=== PATIENT | female | born 1970 | race Caucasian/White ===

== ENCOUNTER 2016-09-17 15:04 | Emergency (ER) | payer BC ==
[~2016-09-17] VITALS: Ht 162.6 cm; Wt 118.6 kg
[~2016-09-17 15:04] MED LIST: CHOLTAB3 PO; CYAN500T13 PO; FERR325T5 PO
[2016-09-17 15:18] VITALS: TEMP 37.2; Ht 162.6 cm; Wt 118.6 kg
--- NOTE | 2016-09-17 16:11 | EMERGENCY ROOM VISIT NOTE ---
History First contact with patient: 15:56 Chief Complaint: FLU LIKE SX Stated Complaint: FLU SX, D,V,JAVED, JOINT PAIN, CP, ABD. PAIN History of Present Illness The patient is a 45 year old female who presents to the Emergency Room with complaints of flulike symptoms. The patient states her symptoms started 2 days ago on Sunday. The patient states that she developed diarrhea Sunday afternoon. She was feeling better Sunday morning but in the afternoon she began to have vomiting. She reports dry heaves. She reports diarrhea since Sunday again. She states she has had some tightness in her chest. She states she is not able to keep any food or liquids down. She reports arthralgias, myalgias, headache. She rates her discomfort a 5/10. She denies any shortness of breath or pleuritic pain. She denies any localized abdominal pain, hematemesis, melena or hematochezia. She denies any urinary symptoms. She does not know of any sick contacts. She denies any earache, sore throat, cough. She was seen at her family doctor's office, given Phenergan and referred to the emergency department. She denies any recent antibiotic use or recent travel. Review of Systems A 10 system review of systems was completed with positives and pertinent negatives listed in the HPI. Past Medical/Surgical History Medical Problems: (1) Fibroid tumor Surgical Problems: (1) H/O colonoscopy Social History Smoking Status: Never Smoker Alcohol Use: none Marital Status: Housing Status: lives with family Occupation Status: employed Current/Historical Medications Scheduled Cyanocobalamin (Vitamin B12 500MCG), 500 MCG PO DAILY Ergocalciferol (Vitamin D), 400 INTER.UNIT PO DAILY Ferrous Sulfate (Ferrous Sulfate), 325 MG PO BID Levofloxacin (Levaquin), 750 MG PO DAILY Ondasetron Odt (Zofran Odt), 4 MG SL Q6H Scheduled PRN Ibuprofen Tab (Advil), 200-600 MG PO Q4H PRN for Pain or Fever Allergies Coded Allergies: No Known Allergies (Verified , 09/17/16) Physical Exam Vital Signs Date Time Temp Pulse Resp B/P Pulse Ox O2 Delivery O2 Flow Rate FiO2 09/17/16 18:53 90 16 122/62 99 09/17/16 17:08 101 159/95 94 Room Air 09/17/16 15:18 37.2 120 20 144/85 95 Room Air Physical Exam VITALS: Vitals are noted on the nurse's note and reviewed by myself. Vital signs stable. The patient is afebrile. She is normotensive. She is tachycardic with heart rate 120 bpm. GENERAL: This is a 45-year-old female, in no acute distress, nondiaphoretic, well-developed well-nourished. SKIN: The skin was without rashes, erythema, edema, or bruising. There is no tenting of the skin. Capillary reflex less than 2 seconds. HEAD: Normocephalic atraumatic. EARS: External auditory canals clear, tympanic membranes pearly thao without erythema or effusion bilaterally. EYES: Pupils equal round and reactive to light and accommodation. Conjunctivae without injection, sclerae without icterus. Extraocular movements intact. NOSE: Patent, turbinates without inflammation or discharge. MOUTH: Mucous membranes moist. Tonsils are not enlarged. Pharynx without erythema or exudate. Uvula midline. Airway patent. Tongue does not deviate. NECK: Supple without nuchal rigidity. No JVD. HEART: Regular rate and rhythm without murmurs gallops or rubs. LUNGS: Clear to auscultation bilaterally without wheezes, rales or rhonchi. No retractions or accessory muscle use. ABDOMEN: Positive bowel sounds x 4. Soft, mild diffuse tenderness, without masses or organomegaly. MUSCULOSKELETAL: No muscle atrophy, erythema, or edema noted. Full range of motion in all extremities. Strength 5/5 throughout. NEURO: Patient was alert and oriented to person place and time. No focal neurological deficits. Medical Decision & Procedures ER Provider Diagnostic Interpretation: CHEST CTA for PULMONARY ARTERIES CT DOSE: 719.52 mGy.cm HISTORY: Atypical chest pain. Elevated d-dimer. TECHNIQUE: Multiaxial CT images of the chest were performed following the intravenous administration of contrast to evaluate the pulmonary arteries. Maximal intensity projection images were also obtained. COMPARISON STUDY: Chest 09/17/2016. FINDINGS: There is a normal caliber thoracic aorta with no evidence for dissection. There is no evidence for pulmonary embolus. No pleural effusions. No pneumothorax. No mediastinal or hilar lymphadenopathy. The central airways are patent. Multiple gallstones. The heart is mildly enlarged. There are fatty changes within the liver. The spleen and adrenal glands are unremarkable. There are groundglass densities throughout the lungs. IMPRESSION: 1. No evidence for pulmonary embolus. 2. Cholelithiasis. 3. Groundglass densities throughout the lungs. This favors a poor inspiratory effort. An atypical pneumonitis could also a similar appearance but is considered less likely. Laboratory Results 09/17/16 16:00 Red Blood Count 5.80, Mean Corpuscular Volume 80.2, Mean Corpuscular Hemoglobin 26.9, Mean Corpuscular Hemoglobin Concent 33.5, Mean Platelet Volume 9.0, Neutrophils (%) (Auto) 64.6, Lymphocytes (%) (Auto) 26.4, Monocytes (%) (Auto) 7.7, Eosinophils (%) (Auto) 0.4, Basophils (%) (Auto) 0.3, Neutrophils # (Auto) 6.29, Lymphocytes # (Auto) 2.57, Monocytes # (Auto) 0.75, Eosinophils # (Auto) 0.04, Basophils # (Auto) 0.03 09/17/16 16:00 Test 09/17/16 16:00 09/17/16 16:09 09/17/16 17:03 White Blood Count 9.74 K/uL (4.8-10.8) Red Blood Count 5.80 M/uL (4.2-5.4) Hemoglobin 15.6 g/dL (12.0-16.0) Hematocrit 46.5 % (37-47) Mean Corpuscular Volume 80.2 fL (80-100) Mean Corpuscular Hemoglobin 26.9 pg (25-34) Mean Corpuscular Hemoglobin Concent 33.5 g/dl (32-36) Platelet Count 278 K/uL (130-400) Mean Platelet Volume 9.0 fL (7.4-10.4) Neutrophils (%) (Auto) 64.6 % Lymphocytes (%) (Auto) 26.4 % Monocytes (%) (Auto) 7.7 % Eosinophils (%) (Auto) 0.4 % Basophils (%) (Auto) 0.3 % Neutrophils # (Auto) 6.29 K/uL (1.4-6.5) Lymphocytes # (Auto) 2.57 K/uL (1.2-3.4) Monocytes # (Auto) 0.75 K/uL (0.11-0.59) Eosinophils # (Auto) 0.04 K/uL (0-0.5) Basophils # (Auto) 0.03 K/uL (0-0.2) RDW Standard Deviation 42.8 fL (36.4-46.3) RDW Coefficient of Variation 14.8 % (11.5-14.5) Immature Granulocyte % (Auto) 0.6 % Immature Granulocyte # (Auto) 0.06 K/uL (0.00-0.02) D-Dimer 630 ug/L FEU (0-500) Anion Gap 11.0 mmol/L (3-11) Est Creatinine Clear Calc Drug Dose 80.1 ml/min Estimated GFR () 69.2 Estimated GFR (Non- 59.7 BUN/Creatinine Ratio 20.3 (10-20) Calcium Level 8.8 mg/dl (8.5-10.1) Magnesium Level 2.0 mg/dl (1.8-2.4) Total Bilirubin 0.7 mg/dl (0.2-1) Aspartate Amino Transf (AST/SGOT) 19 U/L (15-37) Alanine Aminotransferase (ALT/SGPT) 31 U/L (12-78) Alkaline Phosphatase 82 U/L (45-117) Troponin I < 0.015 ng/ml (0-0.045) Total Protein 8.0 gm/dl (6.4-8.2) Albumin 3.6 gm/dl (3.4-5.0) Globulin 4.4 gm/dl (2.5-4.0) Albumin/Globulin Ratio 0.8 (0.9-2) Lipase 136 U/L (73-393) Influenza Type A Antigen Neg for Influ A (NEG) Influenza Type B Antigen Neg for Influ B (NEG) Urine Color DK YELLOW Urine Appearance CLOUDY (CLEAR) Urine pH 5.0 (4.5-7.5) Urine Specific [place] 1.032 (1.000-1.030) Urine Protein 1+ (NEG) Urine Glucose (UA) NEG (NEG) Urine Ketones TRACE (NEG) Urine Occult Blood TRACE (NEG) Urine Nitrite POS (NEG) Urine Bilirubin NEG (NEG) Urine Urobilinogen NEG (NEG) Urine Leukocyte Esterase TRACE (NEG) Urine WBC (Auto) 5-10 /hpf (0-5) Urine RBC (Auto) 0-4 /hpf (0-4) Urine Hyaline Casts (Auto) 10-30 /lpf (0-5) Urine Epithelial Cells (Auto) >30 /lpf (0-5) Urine Bacteria (Auto) 2+ (NEG) Urine Mucus PRESENT (NONE PRSENT) Medications Administered Medications (Trade) Dose Ordered Sig/Robert Route Start Time Stop Time Status Last Admin Dose Admin Levofloxacin (Levaquin Tab) 500 mg NOW STAT PO 09/17/16 18:42 09/17/16 18:43 DC 09/17/16 18:52 500 MG Ondansetron HCl (Zofran Inj) 4 mg NOW STAT IV 09/17/16 18:42 09/17/16 18:43 DC 09/17/16 18:52 4 MG Ondansetron HCl (ZOFRAN ODT 4MG Home Pack) 1 homepack UD ONCE PO 09/17/16 18:45 09/17/16 18:46 DC 09/17/16 18:53 1 HOMEPACK Procedure The patient was monitored on a night monitor. They maintained a normal sinus rhythm without ectopy. ECG Indication: chest pain Rate (beats per minute): 104 Rhythm: sinus tachycardia Findings: nonspecific-ST abn Comparison ECG Date: no prior available ED Course The patient was seen and examined. Previous visits were reviewed. The patient does not have a fever or leukocytosis. She does not have any significant electrolyte abnormality. Troponin was not elevated. Lipase was not elevated. D-dimer was elevated. Urinalysis suggests urinary tract infection and a urine culture is pending. Influenza was negative. EKG does not reveal any acute arrhythmia or ischemia CTA of the chest suggest atypical pneumonitis versus poor inspiratory effort but no evidence for pulmonary embolus The patient was hydrated with normal saline 2 L She was given 4 mg IV Zofran She was given oral Levaquin The patient presents to the emergency department with symptoms of gastroenteritis. She has had nausea, vomiting and diarrhea. She also appears to have a urinary tract infection. There was question of pneumonitis versus poor respiratory effort on CT imaging of the chest. The patient will be placed on Levaquin. She'll be given a prescription for Zofran. She should return to the ER with any worsening symptoms. Otherwise, she should follow-up with her family doctor later this week. The case was discussed with Dr. Albert who agrees with the assessment and treatment plan Medical Decision DIFFERENTIAL DIAGNOSIS: Hepatitis, cholecystitis, cholangitis, biliary colic, pancreatitis, pneumonia, subdiaphragmatic abscess, appendicitis, inguinal hernia , nephrolithiasis, inflammatory bowel disease, mesenteric adenitis, peptic ulcer disease, GERD, gastritis, pancreatitis, myocardial infarction, pericarditis, ruptured aortic aneurysm, appendicitis, gastroenteritis, bowel obstruction, splenic infarct, diverticulitis, mesenteric ischemia, metabolic, peritonitis, among others. Impression Primary Impression: Urinary tract infection Additional Impression: Nausea vomiting and diarrhea Departure Information Dispostion Home / Self-Care Condition GOOD Prescriptions Levofloxacin (Levaquin) 750 Mg Tab 750 MG PO DAILY for 5 Days, #5 TAB Prov: Iris Pozo PA-C 09/17/16 Ondasetron Odt (ZOFRAN ODT) 4 Mg Tab 4 MG SL Q6H for Nausea, #10 TAB Prov: Iris Pozo PA-C 09/17/16 Referrals Brett Calvin M.D. (PCP) Patient Instructions [facility] Additional Instructions Levaquin once daily for 5 days Zofran as prescribed, as needed for nausea and vomiting Return with any fevers, inability to keep the medication down, generalized worsening symptoms Otherwise, recheck with your family doctor later this week Work Instructions Return To Work: 3 days Problem Qualifiers Primary Impression: Urinary tract infection Urinary tract infection type: acute cystitis Hematuria presence: without hematuria Qualified Codes: N30.00 - Acute cystitis without hematuria
[2016-09-17 16:28] LABS: BASO % 0.3 %; BASO ABS # 0.03 K/uL (0-0.2); COMPLETE YES; EOS % 0.4 %; HEMATOCRIT 46.5 % (37-47); IG% 0.6 %; LYMPH % 26.4 %; LYMPH ABS # 2.57 K/uL (1.2-3.4); MEAN CELL VOLUME 80.2 fL (80-100); MEAN CORPUSCULAR HEMOGLOBIN 26.9 pg (25-34); MEAN CORPUSCULAR HGB CONC 33.5 g/dl (32-36); MONO % 7.7 %; NEUT % 64.6 %; PLATELET COUNT 278 K/uL (130-400); WHITE BLOOD COUNT 9.74 K/uL (4.8-10.8)
--- NOTE | 2016-09-17 16:34 | DIAGNOSTIC IMAGING REPORT ---
CHEST ONE VIEW PORTABLE HISTORY: Atypical chest pain COMPARISON: None. FINDINGS: The heart is mildly enlarged. There are low lung volumes. The lungs are clear. No pleural effusions. No pneumothorax. IMPRESSION: Mild cardiomegaly. Electronically signed by: Gallo Oden M.D. 09/17/2016 4:32 PM Dictated Date/Time: 09/17/2016 4:32 PM
[2016-09-17 16:50] LABS: ALT/SGPT 31 U/L (12-78); BLOOD UREA NITROGEN 22 mg/dl (7-18); BUN/CREATININE RATIO 20.3 (10-20); CALCIUM 8.8 mg/dl (8.5-10.1); CARBON DIOXIDE 24 mmol/L (21-32); CHLORIDE 107 mmol/L (98-107); GLUCOSE 128 mg/dl (70-99); POTASSIUM 3.8 mmol/L (3.5-5.1); SODIUM 142 mmol/L (136-145)
[2016-09-17] MEDS ORDERED: IBUP-103 PO (16:51)
[2016-09-17 16:55] LABS: ALB/GLOB RATIO 0.8 (0.9-2); ALKALINE PHOSPHATASE 82 U/L (45-117); AST/SGOT 19 U/L (15-37)
[2016-09-17 17:20] LABS: URINE APPEARANCE CLOUDY (CLEAR); URINE COLOR DK YELLOW; URINE EPITHELIAL CELL AUTO >30 /lpf (0-5); URINE NITRITE POS (NEG); URINE SPECIFIC GRAVITY 1.032 (1.000-1.030); UROBILINOGEN NEG (NEG)
[2016-09-17 17:33] LABS: MANUAL MICROSCOPIC REQUIRED? NO; REVIEW REQ? YES; URINE BILIRUBIN NEG (NEG); ZZUR CULT IF INDIC CLEAN CATCH YES
[2016-09-17 17:35] LABS: URINE MUCUS PRESENT (NONE PRSENT)
[2016-09-17] MEDS ORDERED: OPTIRAY 320 IV PRN (17:45)
--- NOTE | 2016-09-17 18:30 | DIAGNOSTIC IMAGING REPORT ---
CHEST CTA for PULMONARY ARTERIES CT DOSE: 719.52 mGy.cm HISTORY: Atypical chest pain. Elevated d-dimer. TECHNIQUE: Multiaxial CT images of the chest were performed following the intravenous administration of contrast to evaluate the pulmonary arteries. Maximal intensity projection images were also obtained. COMPARISON STUDY: Chest 09/17/2016. FINDINGS: There is a normal caliber thoracic aorta with no evidence for dissection. There is no evidence for pulmonary embolus. No pleural effusions. No pneumothorax. No mediastinal or hilar lymphadenopathy. The central airways are patent. Multiple gallstones. The heart is mildly enlarged. There are fatty changes within the liver. The spleen and adrenal glands are unremarkable. There are groundglass densities throughout the lungs. IMPRESSION: 1. No evidence for pulmonary embolus. 2. Cholelithiasis. 3. Groundglass densities throughout the lungs. This favors a poor inspiratory effort. An atypical pneumonitis could also a similar appearance but is considered less likely. Electronically signed by: Gallo Oden M.D. 09/17/2016 6:29 PM Dictated Date/Time: 09/17/2016 6:20 PM
[2016-09-17] MEDS ORDERED: LEVOFLOXACIN 250 MG TAB PO STA (18:42)
[2016-09-17] MEDS ORDERED: ONDANSETRON INJ 2 MG/ML 2 ML VIAL IV STA (18:42)
[2016-09-17] MEDS ORDERED: LEVO1TAB35 PO (18:45)
[2016-09-17] MEDS ORDERED: ONDANSETRON HOME PACK 4MG OD TAB PO ONE (18:45)
[2016-09-17] MEDS ORDERED: ONDA4TAB10 SL (18:45)
[2016-09-17 18:53] VITALS: BP 122/62; PULSE 90; O2SAT 99
== END 2016-09-17 19:01 | disposition home or self-care (01) ==
LOC: C.EDB 15:06 → C.EDA 19:01
DX: N30.00 Acute cystitis without hematuria (principal); R11.2 Nausea with vomiting, unspecified; R19.7 Diarrhea, unspecified; R07.89 Other chest pain; M25.50 Pain in unspecified joint; M79.1 Myalgia; R51 Headache; D21.9 Benign neoplasm of connective and other soft tissue, unspecified; K80.20 Calculus of gallbladder without cholecystitis without obstruction; R91.8 Other nonspecific abnormal finding of lung field

== ENCOUNTER → 2016-11-03 | Outpatient (CLI) | payer BC ==
[~2016-11-03] MED LIST changes: +IBUP-103 PO; +ONDA4TAB10 SL
--- NOTE | 2016-11-03 12:01 | DIAGNOSTIC IMAGING REPORT ---
RENAL ULTRASOUND HISTORY: HEMATURIA COMPARISON: Abdomen and pelvis CT 06/23/2013. FINDINGS: Right kidney: 11.7 cm. No hydronephrosis. Normal corticomedullary differentiation and cortical thickness. Left kidney: 11.6 cm. Mild fullness within the left renal collecting system without hydronephrosis. Normal corticomedullary differentiation and cortical thickness. Bladder: No bladder wall thickening. The bilateral ureteral jets were identified. Hepatic steatosis. IMPRESSION: 1. Normal right kidney. 2. Mild fullness within the left renal collecting system without hydronephrosis. 3. Hepatic steatosis. Electronically signed by: Gallo Oden M.D. 11/03/2016 12:00 PM Dictated Date/Time: 11/03/2016 11:59 AM
== END | disposition home or self-care (01) ==
LOC: C.ULTRBC 11:14
PROVIDERS: ATTEND Family Medicine
DX: R31.9 Hematuria, unspecified (principal); K76.0 Fatty (change of) liver, not elsewhere classified

== ENCOUNTER 2019-01-29 08:33 | Observation (INO) ==
--- NOTE | 2019-01-02 17:14 | PAT Medication Instructions ---
Medication Instructions Date of Service January 02, 2019 Home Medications acetaminophen 650 mg PO Q6H PRN Take morning of surgery With a small sip of water, OTHERWISE NOTHING TO EAT OR DRINK AFTER MIDNIGHT: acetaminophen 650 mg PO Q6H PRN (if needed, may be taken up to four hours before surgery) Take evening before surgery acetaminophen 650 mg PO Q6H PRN (if needed) Other Notes If you have any questions please call us at [phone] or [phone] or [phone] or [phone]
--- NOTE | 2019-01-03 11:38 | Anesthesiology Consultation ---
Date of Service January 03, 2019 Assessment & Plan (1) Encounter for pre-operative examination: PCP Clearance (nathan) 01/03 = " appears to be an acceptable candidate for proceeding with surgery. Cardiovascular risk is very low. I expect her to do well." Chart Review Chart Review: Acceptable Risk for Surgery and Patient seen in Pre Admission Testing Teaching & Discussion Instructed NPO after midnight before surgery, except medications with 15 cc of water. Medication instructions provided according to the PAT guidelines. History Surgery Operation Date: 01/29/19 07:00 Proposed Procedures p Open Incisional Hernia Repair - Robbi Black DO, FACS Height/Weight Height: 5 ft 4 in Weight: 115.2 kg Allergies Allergy/AdvReac Type Severity Reaction Status Date / Time No Known Allergies Allergy Unknown Verified 12/27/18 09:48 Medications Home Medications Medication Instructions Recorded Confirmed Last Taken acetaminophen 650 mg PO Q6H PRN 12/27/18 12/27/18 Unknown Past Medical History Medical History History of uterine cancer 5 years ago, s/p partial hyster Incisional hernia Morbid obesity Exercise / Class Metabolic Activity II 4-5 Yardwork/Stairs/Walk up hill (denies CP or SOB with stairs) Past Surgical History Surgical History History of section 4 History of colonoscopy History of dilatation and curettage History of hysterectomy PARTIAL Past Anesthesia History No Hx of Anesthesia Complications and No Family Hx of Anesthesia Complications h/o awareness with sedation procedures, and "gets the shakes" post op. 07/18/13 hysterectomy @ [facility] = MAC 3, ETT 7.5, GRADE VIEW I, DL X 1 ATRAUMATIC. History of PONV No Hx of PONV and Hx of Motion Sickness Social History Smoking Status: Never smoker Smoking cigarettes per day: 0 Do You Dip or Chew Tobacco: No Hx Alcohol Use: Yes Alcohol Intake Frequency Comment: VERY RARE Hx Substance Use: No Review of Systems Pt denies any recent chest pain, shortness of breath, palpitations, cough, fever or URI. +seasonal allergies Physical Exam Vital Signs BP: 126/83 P: 72bpm SPO2: 96% RA T: 97.7 F R: 14 Constitutional + obese ENMT Mouth: + dentures (full top plate) and + dental restorations (one crown); no chipped teeth and no loose teeth Thyromental Distance: < 3.5 Finger Breadths (3) Mallampati Class: II (with crowded posterior oropharynx) Neck + thick neck (significant excess soft tissue); neck extension not limited Respiratory normal respiratory effort Auscultation: lungs clear to auscultation bilaterally Cardiovascular Rate/Rhythm: regular rate and regular rhythm Heart Sounds: no murmur Extremities: no edema Testing Laboratory Results 01/03/19 11:17 01/03/19 11:17 Electrocardiogram Date: 01/03/19 Findings: + NSR @ (71) Chest X-Ray Date: 01/03/19 IMPRESSION: Cardiomegaly without acute process.
[2019-01-03 11:57] LABS: Basophils # (auto) 0.02 K/uL (0-0.2); Basophils % (auto) 0.2 %; Eosinophils # (auto) 0.17 K/uL (0-0.5); Eosinophils % (auto) 1.6 %; Hematocrit (blood only) 39.9 % (37-47); Hemoglobin 13.6 g/dL (12.0-16.0); Immature Granulocytes # (auto) 0.03 K/uL (0.00-0.02); Immature Granulocytes % (auto) 0.3 %; Lymphocytes # (auto) 3.09 K/uL (1.2-3.4); Mean Corpuscular Hgb Conc 34.1 g/dL (32-36); Mean Corpuscular Volume 80.3 fL (80-100); Mean Platelet Volume 8.7 fL (7.4-10.4); Monocytes # (auto) 0.66 K/uL (0.11-0.59); Monocytes % (auto) 6.2 %; Neutrophils # (auto) 6.69 K/uL (1.4-6.5); Neutrophils % (auto) 62.7 %; Platelet Count 252 K/uL (130-400); RDW Coefficient of Variation 14.5 % (11.5-14.5); RDW Standard Deviation 42.1 fL (36.4-46.3); Red Blood Count 4.97 M/uL (4.2-5.4); White Blood Count 10.66 K/uL (4.8-10.8)
[2019-01-03 12:05] LABS: BUN Creatinine Ratio 23.1 (10-20); Creatinine Clr Calc Pharmacy 142.1 ml/min; Est GFR (African American) 123.9; Est GFR (Non-African American) 106.9; Potassium 3.9 mmol/L (3.5-5.1)
[2019-01-03 12:06] LABS: Albumin Level 3.6 gm/dl (3.4-5.0); Bilirubin Direct 0.1 mg/dl (0-0.2); Calcium 9.3 mg/dl (8.5-10.1)
--- NOTE | 2019-01-03 12:06 | XRay Report ---
XR chest Pre-admission PA/Lat HISTORY: 48 years-old Female pat preoperative exam. No acute chest complaints COMPARISON: Chest radiograph 09/17/2016 TECHNIQUE: PA and lateral views of the chest FINDINGS: Cardiac silhouette is enlarged, unchanged. No pneumothorax, pleural effusion, focal airspace consolid ation or overt pulmonary edema. Degenerative changes of the shoulders and spine. IMPRESSION: Cardiomegaly without acute process. The above report was generated using voice recognition software. It may contain grammatical, syntax o r spelling errors. Electronically signed by: Kobe Onofre M.D. 01/03/2019 12:04 PM
[2019-01-03 12:09] LABS: Bilirubin,Total 0.4 mg/dl (0.2-1); Total Protein 7.5 gm/dl (6.4-8.2)
[~2019-01-29 08:33] MED LIST changes: +CEFAZOLIN 2000MG 2,000 MG/15 ML SYR IV SCH; -CHOLTAB3 PO; -CYAN500T13 PO; -FERR325T5 PO; -IBUP-103 PO; +LR 15ML/HR IV SCH; -ONDA4TAB10 SL
--- NOTE | 2019-01-29 09:09 | History & Physical Bridge Note ---
Date of Service January 29, 2019 History & Physical Bridge Note I have examined the patient, reviewed the History & Physical and in the interval since the performance of the History & Physical I have noted the following changes of clinical significance: no changes noted
[2019-01-29] MEDS ORDERED: ATROPINE SULFATE 0.1 MG/ML 10ML SYR IV PRN (10:37)
[2019-01-29] MEDS ORDERED: ePHEDrine sulfate 50 MG/ML AMP IV PRN (10:37)
[2019-01-29] MEDS ORDERED: MIDAZOLAM HCL 1 MG/ML 2ML VIAL ONE (10:54)
[2019-01-29] MEDS ORDERED: fentaNYL citrate 100 MCG/2 ML VIAL ONE ×2 (10:54→11:50)
[2019-01-29] MEDS ORDERED: ONDANSETRON INJ 2 MG/ML 2 ML VIAL ONE ×2 (10:54→12:41)
[2019-01-29] MEDS ORDERED: DEXAMETHASONE SOD INJ 4 MG/ML VIAL ONE (10:54)
[2019-01-29] MEDS ORDERED: LIDOCAINE HCL 2% 2 ML VIAL/AMP(20MG/ML) INFIL ONE (10:54)
[2019-01-29] MEDS ORDERED: ROCURONIUM BROMIDE 10 MG/ML 5 ML VIAL ONE ×3 (10:54→13:12)
[2019-01-29] MEDS ORDERED: PROPOFOL IV EMULSION 10 MG/ML 20 ML VIAL IV ONE (10:54)
[2019-01-29] MEDS ORDERED: BUPIVACAINE 0.5 % 5 MG/1 ML MPF 30ML VIAL ONE (10:56)
[2019-01-29] MEDS ORDERED: BUPIVACAINE LIPOSOME 1.3% 266 MG/20 ML VIAL ONE (10:56)
[2019-01-29] MEDS ORDERED: NEOSTIGMINE METHYLSULFATE 5 MG/5 ML SYR ONE (12:41)
[2019-01-29] MEDS ORDERED: GLYCOPYRROLATE 0.2 MG/ML VIAL ONE (12:41)
--- NOTE | 2019-01-29 12:49 | Operative Report ---
Post Operative Report Pre & Post Diagnosis Operation Date: 01/29/19 10:20 Pre-Op Diagnosis: cholelithiasis; abdominal incisional hernia Post-Op Diagnosis: chronic calculus cholecystitis, abdominal incisional hernia, adhesions Procedure Operation Date: 01/29/19 10:20 Actual Procedures Laparoscopic Cholecystectomy, laparoscopic lysis of adhesion- Robbi Black DO, CASEY Surgeon Robbi Black DO, CASEY Cookie Padder Rodney Caruso Estimated Blood Loss 4 Findings Consistent with Post-Op Diagnosis After various entry into the abdomen there is noted to be multiple midline adhesions associated with the hernias. Most of these were omentum stuck to the abdominal wall. In order to safely put her laparoscopic cholecystectomy ports and this required lysis of adhesions using harmonic. Once we had a safe window to place our ports, we began the lap scopic cholecystectomy. It was noted that the gallbladder was chronically inflamed. There where multiple large stones. Critical view of safety was obtained, cystic duct and artery doubly clipped and divided. The gallbladder was partially intrahepatic, and there was a small amount of spillage of bile. After the gallbladder was removed I felt that it would increase the risk of infection and complications if I proceeded with the incisional hernia repair, and as discussed prior with the patient, we decided to defer the hernia repair until a few weeks from now. Specimens Gallbladder Anesthesia Type General Complications none Disposition Accompanied Patient To Recovery: No Disposition: Recovery Room Indications 48-year-old obese female with symptomatic incisional hernia from prior hysterectomy. We initially plan for laparoscopic incisional hernia repair, and on her CT that we performed for work-up of the hernia she was noted to have gallstones. At the time of her preop visit, she denied any biliary symptoms. However after talking with her primary care provider, it was noted that she had postprandial pain that seem to be worse with fatty meals along with some bloating and nausea. After discussion in the clinic, we agreed to proceed with laparoscopic cholecystectomy and laparoscopic incisional hernia repair. I did inform her that if she had any signs of cholecystitis or there is any spillage of bile that I would not feel comfortable implanting a piece of intra-abdominal mesh, and that we would defer the surgery for several weeks. She expressed understanding and agreed with plan of care as stated. The risks of the procedure were discussed, all questions were answered, and the patient agreed to proceed with surgery as planned. Description of Procedure The patient was properly identified, consented, and taken to the operating room where she was placed in the supine position. General endotracheal anesthesia was induced. SCDs and a safety belt were placed. Preoperative antibiotics were administered. The patient's abdomen was prepped and draped in the standard sterile fashion. A surgical timeout was performed and all parties were in agreement that this was the correct patient and procedure to be performed and we continued as planned. An incision was made in the left upper quadrant and the Veress needle was inserted. Saline drop test confirmed entry into the peritoneum. The abdomen was insufflated with carbon dioxide which the patient tolerated without incident. The abdomen was then entered using the Optiview technique and a 5 mm trocar. The laparoscope was inserted and no damage from initial trocar or Veress needle placement was noted. There were significant midline adhesions, mostly containing omentum. 5 mm ports were then placed in the left lower quadrant in the left periumbilical region. Lysis of adhesions was performed to allow for placement of the ports required for cholecystectomy. This was done with cautery. 1 of the small hernia defects was identified and contained preperitoneal fat. A second defect was identified and it did contain a loop of small bowel with no evidence of obstruction. Once we completed enough lysis of adhesions to safely place the laparoscopic port sites for cholecystectomy, we proceeded with removal of the gallbladder. An 11 mm port was placed in the subxiphoid position and two 5 mm ports were then placed in the right subcostal position. The patient was placed in reverse Trendelenburg position and rotated towards the left. The gallbladder appeared to be chronically inflamed. The liver was also fatty and made it difficult to retract the gallbladder. Omental adhesions overlying the dome of the gallbladder were taken down with electrocautery. Several other omental adhesions to the gallbladder were taken down with a combination of blunt dissection and cautery. The dome of the gallbladder was retracted towards the left upper quadrant and the infundibulum was retracted toward the right lower quadrant revealing Calot's triangle. There were multiple large gallstones in the infundibulum which may be difficult to proceed with retraction. Peritoneal attachments were taken down with electrocautery and blunt dissection. The cystic duct and artery were circumferentially dissected. A window of safety was obtained showing the cystic duct entering the gallbladder with no aberrant structures noted. The cystic duct and artery were doubly clipped and divided. The gallbladder was then lifted off the gallbladder fossa with electrocautery. It was partially intrahepatic, and there was a small amount of spillage of bile but no stones that occurred during the dissection. The gallbladder was placed in an Endo Catch bag and removed through the subxiphoid port site, which had to be extended for 2 cm to accommodate the gallbladder with the volume of stones. The right upper quadrant was irrigated and hemostasis was found to be good. Due to the fact the gallbladder appeared to have chronic it may be even acute cholecystitis, and that there was a small spillage of bile, I did not feel that it was in the patient's best interest to proceed with repair of the hernia at this time. 5 mm trochars were removed under direct visualization and the abdomen was allowed to collapse. The subxiphoid port site fascia was closed with a running 0 Vicryl suture. The wound was irrigated, and the skin of all ports was closed with 4-0 Monocryl subcuticular sutures. Dermabond was placed over the wounds. The patient was extubated in the operating room and taken to the PACU where she recovered without apparent incident. All sponge, instrument and needle counts were correct at the conclusion of the procedure. The patient tolerated the procedure well. We will plan for laparoscopic incisional hernia repair and lysis of adhesions in the next few weeks. The physician's assistant women's basketball coach was present and scrubbed for the entirety of the case and was essential in positioning the patient, prepping and draping, retraction and exposure, driving the laparoscope, removal of the gallbladder, closure the incisions, and placement of the dressings. I attest to the content of the Intraoperative Record and any orders documented therein. Any exceptions are noted below.
[2019-01-29] MEDS ORDERED: ONDANSETRON INJ 2 MG/ML 2 ML VIAL IV PRN ×2 (12:54→18:44)
[2019-01-29] MEDS ORDERED: MoRPHine SULFATE 4 MG/ML 1 ML CARP\\VIAL IV PRN (12:54)
[2019-01-29] MEDS ORDERED: OXYCODONE/ACETAMINOPHEN 5mg/325mg TAB PO PRN (12:54)
[2019-01-29] MEDS ORDERED: KETOROLAC 30 MG/ML VIAL IV PRN (12:54)
[2019-01-29] MEDS ORDERED: SODIUM CHLORIDE 0.9% 1000ML 1,000 ML IV SCH ×2 (13:00→18:44)
[2019-01-29] MEDS: HYDROmorphone INJ 1 MG/ML SYRINGE IV PRN ×8 (13:07→13:44)
[2019-01-29] MEDS ORDERED: LABETALOL HCL IV 5 MG/ML 20ML IV ONE (13:44)
--- NOTE | 2019-01-29 13:52 | Anesthesiology Progress Note ---
Date of Service January 29, 2019 Anesthesia Post Procedure Vital Signs Vital Signs: Temp Pulse Resp BP Pulse Ox 01/29/19 13:40 36.5 C 58 L 21 140/82 98 01/29/19 13:30 36.4 C L 65 19 147/95 H 100 01/29/19 13:20 36.4 C L 65 19 147/95 H 100 01/29/19 13:10 36.4 C L 61 18 179/85 H 100 01/29/19 13:00 36.4 C L 65 14 183/92 H 99 01/29/19 08:58 36.9 C 74 20 178/91 H 97 Pain Intensity Medial Abdomen: Pain Intensity: 8 Transfer of Care Handoff Completed per policy Notes Mental Status: alert / awake / arousable Patient Amnestic to Procedure: Yes Nausea / Vomiting: adequately controlled Pain: adequately controlled Airway Patency, RR, SpO2: stable & adequate BP & HR: stable & adequate Hydration State: stable & adequate Anesthetic Complications: no major complications apparent and Pt Satisfied with anesthetic care
--- NOTE | 2019-01-29 17:40 | Anesthesiology Progress Note ---
Date of Service January 29, 2019 Anesthesia Post Procedure Vital Signs Vital Signs: Temp Pulse Resp BP Pulse Ox 01/29/19 17:02 93 01/29/19 16:56 58 L 12 120/70 87 L 01/29/19 16:35 95 01/29/19 16:30 60 12 120/48 L 82 L 01/29/19 16:00 36.3 C L 54 L 12 111/71 94 01/29/19 15:37 64 12 137/73 95 01/29/19 15:07 73 14 146/67 H 97 01/29/19 15:00 88 L 01/29/19 14:37 61 12 135/75 96 01/29/19 14:10 96 01/29/19 14:07 36.6 C 62 12 138/77 85 L 01/29/19 14:00 36.5 C 64 14 139/75 95 01/29/19 13:50 36.5 C 61 16 122/56 L 96 01/29/19 13:40 36.5 C 58 L 21 140/82 98 01/29/19 13:30 36.4 C L 65 19 147/95 H 100 01/29/19 13:20 36.4 C L 65 19 147/95 H 100 01/29/19 13:10 36.4 C L 61 18 179/85 H 100 01/29/19 13:00 36.4 C L 65 14 183/92 H 99 01/29/19 08:58 36.9 C 74 20 178/91 H 97 Pain Intensity Medial Abdomen: Pain Intensity: 4 Transfer of Care Handoff Completed per policy Notes Mental Status: alert / awake / arousable and participated in evaluation Patient Amnestic to Procedure: Yes Nausea / Vomiting: improving with treatment Pain: adequately controlled and improving with treatment Airway Patency, RR, SpO2: see Notes below BP & HR: stable & adequate Hydration State: stable & adequate Anesthetic Complications: no major complications apparent, see Notes below and Pt Satisfied with anesthetic care Notes: Called by phase 2 nursing staff as patient had been in recovery for three hours and was still somewhat somnolent, mildly nauseated and unable to be fully weaned from oxygen. I spoke with the patient and her at bedside. Patient was conversant but stated she was tired and had some mild pain and nausea. She had SpO2 of mid 90's on [place] oxygen. No formal diagnosis of JAMAL but patient had many risk factors for being an undiagnosed sleep apnea patient. After a long conversation with both she and her , decision was made to have her stay overnight on monitor with continuous pulse oximetry. Spoke with surgical PA and he agreed to place admission orders. Patient and had all questions answered.
[2019-01-30] MEDS: OXYCODONE/ACETAMINOPHEN 5mg/325mg TAB PO PRN ×2 (07:33→12:13)
--- NOTE | 2019-01-30 07:43 | Surgery Progress Note ---
Date of Service January 30, 2019 Assessment & Plan (1) S/P cholecystectomy: s/p lap cholecystectomy, failure to wean off O2 post op but improved this AM. d/c to home after tolerates breakfast f/u in clinic in 2 weeks return precautions given wound care and activity restrictions given Present on Admission?: Yes Subjective POD#1 lap cholecystectomy, unable to wean off O2 so kept overnight. Doing well this AM, no complaints, off O2, ambulating, tolerating diet. Physical Exam Constitutional: WD/WN, vitals as above Gastrointestinal (Abdomen): incisions with dermabond, well healed, no e/o infection or hernia. Abd appropriately ttp, no guarding Results & Data Vital Signs (Past 12 Hours) Vital Signs Temp Pulse Resp BP BP Pulse Ox 01/30/19 07:19 36.7 C 72 19 134/80 92 01/30/19 05:45 92 01/30/19 03:43 36.8 C 74 18 124/74 96 01/29/19 23:13 36.5 C 65 18 124/78 95 01/29/19 21:48 36.5 C 69 16 108/70 95 01/29/19 20:40 36.6 C 69 16 104/67 95
--- NOTE | 2019-01-30 07:51 | Discharge Summary ---
Date of Service January 30, 2019 Principal Diagnosis Cholelithiasis, chronic cholecystitis Discharge Exam Gastrointestinal (Abdomen) Inspection/Auscultation: + abdominal surgical incision (clean, dry); abdomen not distended Percussion/Palpation: abdomen soft Discharge Data Allergies Allergy/AdvReac Type Severity Reaction Status Date / Time No Known Allergies Allergy Unknown Verified 01/29/19 08:56 Procedures Performed Operation Date: 01/29/19 10:20 Actual Procedures p Laparoscopic Cholecystectomy, lysis of adhesions(Not Applicable) - Robbi Black DO, FACS Hospital Course (1) Cholelithiasis: 48 y/o female with cholelithiasis and incisional hernia taken to the OR for elective cholecystectomy, possible incisional hernia repair. Due to chronic cholecystitis, we did not repair the hernia due to the risk of mesh infection. She required supplemental oxygen while in phase II recovery. She was admitted for overnight observation. Oxygen was weaned overnight, she was ambulating and tolerating diet in the morning. She was stable for discharge. Total Time Total Time Spent Total Time Spent (In Minutes): 15 Discharge Plan Discharge Items Reason For Visit: Incisional Hernia Discharge Diagnosis: cholecystectomy Discharge Goals: Decrease discomfort and Improve function Activity: Per 'Additional Instructions' section Lifting Comment: no more than 20 pounds Bathing: No limitations Exercise/Sports: Wait until after follow-up appointment Driving/Machine Use: Resume 3 days after discharge Call non-emergency contact if: you have any medication questions, your symptoms worsen, your pain is not controlled, your pain is worsening, you have a fever, your temperature is above 101.5, your wound has increased redness and your wound has increased drainage Follow-up/Referrals: Robbi Black DO, FACS [Physician] - (Please follow up in clinic within the next two weeks) Brett Calvin MD [Primary Care Provider] - Addtl Provider Instructions: You may take plain Tylenol if you do not require the Percocet for pain control. Please be aware that both Tylenol and Percocet contain Acetaminophen and you should not exceed 3.5grams of Acetaminophen within a 24 hour time period. Prescriptions: New oxycodone-acetaminophen [Percocet] 5-325 mg tablet 1 - 2 tab PO Q4H PRN (Reason: pain) Qty: 15 RF: 0 Discontinued acetaminophen 325 mg Capsule 650 mg PO Q6H PRN (Reason: Pain) RF: 0 Stand-Alone Forms: Anesthesia/Sedation, Adult, [facility]/Other Patient Handouts: Surgery Prevent DVT After Admission Data Admit Date/Time: 01/29/19 18:44 Attending Provider: Robbi Black Admit Provider: Robbi Black Primary Care Provider: Brett Calvin Service: Surgical Services
== END 2019-01-30 12:30 | disposition home or self-care (01) ==
LOC: 3W 08:33 → ASU 08:33

== ENCOUNTER 2019-02-08 04:35 | Inpatient (IN) ==
[2019-02-08] MEDS ORDERED: HYDROmorphone INJ 0.5 MG/0.5 ML SYR IV STA ×2 (04:55→07:06)
[2019-02-08] MEDS ORDERED: ONDANSETRON INJ 2 MG/ML 2 ML VIAL IV STA (04:55)
[2019-02-08] MEDS ORDERED: SODIUM CHLORIDE 0.9% 500 ML IV SCH (05:00)
[2019-02-08 05:10] LABS: Basophils # (auto) 0.01 K/uL (0-0.2); Basophils % (auto) 0.1 %; Eosinophils # (auto) 0.14 K/uL (0-0.5); Eosinophils % (auto) 1.1 %; Hematocrit (blood only) 42.7 % (37-47); Hemoglobin 14.4 g/dL (12.0-16.0); Immature Granulocytes # (auto) 0.04 K/uL (0.00-0.02); Immature Granulocytes % (auto) 0.3 %; Lymphocytes # (auto) 2.21 K/uL (1.2-3.4); Lymphocytes % (auto) 17.2 %; Mean Corpuscular Hgb Conc 33.7 g/dL (32-36); Mean Corpuscular Volume 80.6 fL (80-100); Mean Platelet Volume 8.8 fL (7.4-10.4); Monocytes # (auto) 0.56 K/uL (0.11-0.59); Monocytes % (auto) 4.4 %; Neutrophils # (auto) 9.89 K/uL (1.4-6.5); Neutrophils % (auto) 76.9 %; Platelet Count 254 K/uL (130-400); RDW Coefficient of Variation 14.6 % (11.5-14.5); RDW Standard Deviation 42.6 fL (36.4-46.3); White Blood Count 12.85 K/uL (4.8-10.8)
[2019-02-08 05:30] LABS: Albumin Level 3.6 gm/dl (3.4-5.0); BUN Creatinine Ratio 22.3 (10-20); Calcium 9.2 mg/dl (8.5-10.1); Creatinine Clr Calc Pharmacy 127.8 ml/min; Est GFR (Non-African American) 103.5; Potassium 4.2 mmol/L (3.5-5.1)
[2019-02-08 05:33] LABS: Albumin Globulin Ratio 0.9 (0.9-2); Bilirubin,Total 0.5 mg/dl (0.2-1); Globulin 4.2 gm/dl (2.5-4.0); Total Protein 7.8 gm/dl (6.4-8.2)
[2019-02-08] MEDS ORDERED: IOVERSOL 100ml IV PRN (05:55)
[2019-02-08 07:11] LABS: Appearance Urine Clear (Clear); Bilirubin Urine Negative (Negative); Blood Urine 1+ (Negative); Color Urine Yellow; Glucose Urine UA Negative (Negative); Ketones Urine Negative (Negative); Leukocyte Esterase Urine Negative (Negative); Nitrite Urine Negative (Negative); Protein Urine Negative (Negative); Urobilinogen Urine Negative (Negative)
[2019-02-08] MEDS ORDERED: ONDANSETRON INJ 2 MG/ML 2 ML VIAL ONE ×2 (07:20→08:04)
[2019-02-08] MEDS: SODIUM CHLORIDE 0.9% 500 ML IV SCH ×2 (07:22→12:08)
[2019-02-08 07:29] LABS: Epithelial Cell Urine 20-30 /lpf (0-5)
[2019-02-08 07:30] LABS: Bacteria Urine Negative (Negative); RBC Urine 0-4 /hpf (0-4); WBC Urine 0-5 /hpf (0-5)
--- NOTE | 2019-02-08 07:38 | Emergency Department Note ---
Entered by Meenu Molina acting as a scribe for History of Present Illness General Chief complaint: Abdominal Pain Stated complaint: abd pain,vomiting Time Seen by Provider: 02/08/19 04:46 Source: patient History of Present Illness Onset (ago): hour(s) (11) Location: abdomen Severity: similar to prior episodes Pain Consistency: + other (persistent ) Maximum Pain Intensity: 9 Associated symptoms: + nausea/vomiting, + shortness of breath and + other (negative urinary symptoms; positive diarrhea); no chest pain The patient is a 48 year old female who presents to the Emergency Room with complaints of persistent abdominal pain that began at 1800, about 11 hours prior to arrival. The patient states that she has had nausea and vomiting during this time. She states that she had an episode of diarrhea just prior to arrival. The patient denies urinary symptoms. She denies chest pain, but states that she has some shortness of breath. The patient states that she had her gallbladder removed on 01/29, 10 days ago. The patient states that this pain has been improving until tonight. The patient states that she has an old incisional hernia, and states that she has previously had 4 sections, a partial hysterectomy, and a DNC procedure previously. Home Medications Home Medications Medication Instructions Recorded Confirmed Type No Known Home Medications 02/08/19 02/08/19 History Allergies Allergy/AdvReac Type Severity Reaction Status Date / Time No Known Allergies Allergy Unknown Verified 02/08/19 04:46 Past Med/Surg History Medical History History of uterine cancer 5 years ago, s/p partial hyster Incisional hernia Morbid obesity Surgical History Hx of cholecystectomy History of section 4 History of colonoscopy History of dilatation and curettage History of hysterectomy PARTIAL Social History Preferred Language: Belarusian Communication Ability: Effective [employer] Required: No Beliefs That Will Affect Care: None Current Living Situation: Spouse Other Information That Helps Us Care for You: No Feels Safe at Home: Yes Safety Concerns: Feels Safe At This Time Smoking Status: Never smoker Cigarettes Per Day: 0 Second Hand Exposure: No Hx Alcohol Use: No Hx Substance Use: No Review of Systems See HPI for pertinent positives & negatives. and A total of 10 systems reviewed and were otherwise negative Physical Exam Vital Signs Vital Signs - 24 hr 02/08/19 04:37 02/08/19 05:05 02/08/19 05:13 Temperature 36.4 C L Temperature Source Oral Sepsis Recent Fever Within 48 Hours No Sepsis New/Unexplained Change in Mental Status No Sepsis Action Taken by Nursing No Action Required Pulse Rate 84 76 Pulse Rate [Left Radial] Pulse Rate from SpO2 Sensor 76 Respiratory Rate 16 26 H Blood Pressure 168/96 H Blood Pressure [Right Arm] Blood Pressure Mean 120 Blood Pressure Mean [Right Arm] Pulse Oximetry 97 95 Oxygen Delivery Method Room Air Room Air Oxygen Flow Rate 02/08/19 05:29 02/08/19 05:30 02/08/19 05:37 Temperature Temperature Source Sepsis Recent Fever Within 48 Hours Sepsis New/Unexplained Change in Mental Status Sepsis Action Taken by Nursing Pulse Rate 75 74 73 Pulse Rate [Left Radial] Pulse Rate from SpO2 Sensor 74 73 Respiratory Rate 18 21 Blood Pressure 138/80 Blood Pressure [Right Arm] Blood Pressure Mean 99 Blood Pressure Mean [Right Arm] Pulse Oximetry 94 96 Oxygen Delivery Method Oxygen Flow Rate 02/08/19 05:40 02/08/19 05:56 02/08/19 05:57 Temperature Temperature Source Sepsis Recent Fever Within 48 Hours Sepsis New/Unexplained Change in Mental Status Sepsis Action Taken by Nursing Pulse Rate 74 73 71 Pulse Rate [Left Radial] 75 Pulse Rate from SpO2 Sensor 74 71 Respiratory Rate 17 7 L 17 Blood Pressure 155/79 H Blood Pressure [Right Arm] 138/80 Blood Pressure Mean 104 Blood Pressure Mean [Right Arm] 99 Pulse Oximetry 96 97 Oxygen Delivery Method Nasal Cannula Oxygen Flow Rate 2 02/08/19 06:00 02/08/19 06:10 02/08/19 06:30 Temperature Temperature Source Sepsis Recent Fever Within 48 Hours Sepsis New/Unexplained Change in Mental Status Sepsis Action Taken by Nursing Pulse Rate 72 79 73 Pulse Rate [Left Radial] Pulse Rate from SpO2 Sensor 72 78 73 Respiratory Rate 17 16 16 Blood Pressure 157/97 H 150/92 H Blood Pressure [Right Arm] Blood Pressure Mean 117 111 Blood Pressure Mean [Right Arm] Pulse Oximetry 97 98 98 Oxygen Delivery Method Oxygen Flow Rate 02/08/19 07:16 02/08/19 07:31 Temperature Temperature Source Sepsis Recent Fever Within 48 Hours Sepsis New/Unexplained Change in Mental Status Sepsis Action Taken by Nursing Pulse Rate 69 73 Pulse Rate [Left Radial] Pulse Rate from SpO2 Sensor 70 71 Respiratory Rate 21 17 Blood Pressure 182/103 H 183/106 H Blood Pressure [Right Arm] Blood Pressure Mean 129 131 Blood Pressure Mean [Right Arm] Pulse Oximetry 97 99 Oxygen Delivery Method Nasal Cannula Oxygen Flow Rate 2 General: Appears uncomfortable. HEENT: Head - normocephalic and atraumatic Pupils are equal, round, and reactive to light. Extraocular eye muscles are intact, and sclera are anicteric. Nose - moist nasal mucosa without discharge. Mouth - moist buccal mucosa. Oropharynx is nonerythematous and there is no tonsillar exudate or edema noted. Neck: Supple; no JVD, nuchal rigidity, cervical lymphadenopathy. Heart: Regular rate and rhythm. There is a normal S1 and S2 with no murmurs, clicks, or gallops appreciated. Lungs: Clear to auscultation bilaterally with no wheezes, rales, or rhonchi. Abdomen: Soft, nondistended, with good bowel sounds. Pain with palpation in the epigastrium, left lower quadrant, and right upper quadrant. There are no palpable pulsatile masses or hepatosplenomegaly. There is no guarding, rigidity, or rebound noted. Extremities: No evidence of cyanosis, clubbing, or edema. There are easily palpable peripheral pulses. Skin: warm and dry with good turgor and no rashes. Course 0450: Past medical records reviewed. The patient was evaluated in room A2. A complete history and physical exam was performed. An IV lock was initiated and labs were drawn as above. 0456: Dilaudid 1 mg IV and Zofran 4 mg IV administered. The patient went for an obstruction series which showed evidence concerning for small bowel obstruction. 0530: Sodium Chloride 500 mls @ 999 mls/hr IV administered. The patient will go for CT scan of the abdomen/pelvis to confirm small bowel obstruction. 0600: Upon reevaluation, some of the pain has dissipated and her nausea is now gone. The patient states that she is still uncomfortable. The patient already went for her CT. 0653: Upon reevaluation, the patient is beginning to have some discomfort again. Surgery will be called shortly. 0657: I discussed the case with Dr. Tong - General Surgery who states that the ORs are closed for maintenance currently. I reviewed this with the patient and her and they chose transfer to [place] if unable to have the surgery done here. 0714: I discussed the case with Dr. Grant Andrade who requested that the patient stay here because they have two emergent cases they are starting currently and do not believe that they can handle a third case. 0717: I discussed the case with Dr. Ran Andrade after speaking to Dr. Grant Andrade who accepts the patient for surgery. They will open up the OR for this case. Consultations Consultation #1: I discussed the case with Dr. Ran Andrade who states that the ORs are closed for maintenance currently. Time: 06:57 Consultation #2: I discussed the case with Dr. Grant Andrade who requested that the patient stay here because they have two emergent cases they are starting currently and do not believe that they can handle a third case. Time: 07:14 Consultation #3: I discussed the case with Dr. Ran Andrade after speaking to Dr. Grant Andrade who accepts the patient for surgery. Time: 07:17 Administered Medications Heparin Sodium (Porcine) (Heparin Sodium (Porcine)) 5,000 units SQ Q8 LAILA Stop: 03/10/19 13:59 Last Admin: 02/08/19 21:01 Dose: 5,000 units Documented by: [id number] Cosigned by: [id number] Admin: 02/08/19 14:27 Dose: 5,000 units Documented by: [id number] Cosigned by: [id number] Lactated Ringer's (Lr) 1,000 mls @ 100 mls/hr IV .Q10H LAILA Stop: 03/10/19 11:59 Last Admin: 02/08/19 20:42 Dose: 100 mls/hr Documented by: [id number] Infusion: 02/08/19 20:42 Dose: 100 mls/hr Documented by: [id number] Admin: 02/08/19 11:59 Dose: 100 mls/hr Documented by: [id number] Ioversol (Optiray 320 100ml) 92 ml IV ONCE PRN PRN Reason: Interaction Checking Stop: 02/12/19 05:54 Last Admin: 02/08/19 05:56 Dose: 92 ml Documented by: [id number] Morphine Sulfate (Morphine Sulfate) 2 mg IV Q3H PRN PRN Reason: MODERATE Pain (Scale 4,5,6) Stop: 02/22/19 10:19 Last Admin: 02/09/19 00:33 Dose: 2 mg Documented by: [id number] Admin: 02/08/19 12:02 Dose: 2 mg Documented by: [id number] Ondansetron HCl (Zofran) 4 mg IV Q4H PRN PRN Reason: Nausea And Vomiting Stop: 03/10/19 10:19 Last Admin: 02/09/19 00:37 Dose: 4 mg Documented by: [id number] Oxycodone/Acetaminophen (Percocet 5mg/325mg) 2 tab PO Q4H PRN PRN Reason: SEVERE Pain (Scale 7,8,9,10) Stop: 02/22/19 10:19 Last Admin: 02/08/19 22:30 Dose: 2 tab Documented by: [id number] Admin: 02/08/19 16:12 Dose: 2 tab Documented by: [id number] Admin: 02/08/19 12:29 Dose: 2 tab Documented by: [id number] Discontinued Medications Bupivacaine HCl/Epinephrine Bitart (Sensorcaine/Epinephrine 0.5% Mpf 1:200,000) Confirm Administered Dose 30 ml .ROUTE .STK-MED ONE Stop: 02/08/19 08:22 Last Admin: 02/08/19 09:51 Dose: 30 ml Documented by: [id number] Fentanyl Citrate (Fentanyl Citrate) 50 mcg IV Q5M PRN PRN Reason: PACU Use Only-Pain Stop: 02/08/19 12:59 Last Admin: 02/08/19 10:55 Dose: 50 mcg Documented by: [id number] Admin: 02/08/19 10:50 Dose: 50 mcg Documented by: [id number] Fentanyl Citrate (Fentanyl Citrate) Confirm Administered Dose 100 mcg .ROUTE .STK-MED ONE Stop: 02/08/19 10:50 Last Admin: 02/08/19 12:08 Dose: Not Given Documented by: [id number] Hydromorphone HCl (Dilaudid) 1 mg IV NOW STA Stop: 02/08/19 04:56 Last Admin: 02/08/19 05:02 Dose: 1 mg Documented by: [id number] Hydromorphone HCl (Dilaudid) 0.5 mg IV NOW STA Stop: 02/08/19 07:07 Last Admin: 02/08/19 07:12 Dose: 0.5 mg Documented by: [id number] Sodium Chloride (Nss) 500 mls @ 999 mls/hr IV .Q31M LAILA Stop: 02/08/19 05:30 Last Infusion: 02/08/19 05:39 Dose: 0 mls/hr Documented by: [id number] Admin: 02/08/19 05:02 Dose: 999 mls/hr Documented by: [id number] Sodium Chloride (Nss) 500 mls @ 125 mls/hr IV .Q4H LAILA Stop: 03/10/19 07:14 Last Infusion: 02/08/19 12:13 Dose: 0 mls/hr Documented by: [id number] Admin: 02/08/19 12:08 Dose: Not Given Documented by: [id number] Admin: 02/08/19 07:22 Dose: 125 mls/hr Documented by: [id number] Ondansetron HCl (Zofran) 4 mg IV NOW STA Stop: 02/08/19 04:56 Last Admin: 02/08/19 05:02 Dose: 4 mg Documented by: [id number] Ondansetron HCl (Zofran) Confirm Administered Dose 4 mg .ROUTE .STK-MED ONE Stop: 02/08/19 07:21 Last Admin: 02/08/19 07:22 Dose: 4 mg Documented by: [id number] Medical Decision Making Differential Diagnosis Differential diagnoses include small bowel obstruction, colitis, diverticulitis, post-surgical complication, and others were considered. Medical Records Attestation: I reviewed the patient's medical records. Home Medications Current Medication List: was personally reviewed by me Laboratory Data Attestation: I reviewed the patient's lab results. Result diagrams: 02/08/19 05:01 02/08/19 05:01 Lab Results 02/08/19 02/08/19 02/08/19 Range/Units 05:01 05:01 06:51 WBC 12.85 H (4.8-10.8) K/uL RBC 5.30 (4.2-5.4) M/uL Hgb 14.4 (12.0-16.0) g/dL Hct 42.7 (37-47) % MCV 80.6 (80-100) fL MCH 27.2 (25-34) pg MCHC 33.7 (32-36) g/dL RDW Std Deviation 42.6 (36.4-46.3) fL RDW Coeff of Julio Cesar 14.6 H (11.5-14.5) % Plt Count 254 (130-400) K/uL MPV 8.8 (7.4-10.4) fL Immature Gran % (Auto) 0.3 % Neut % (Auto) 76.9 % Lymph % (Auto) 17.2 % [place] % (Auto) 4.4 % Eos % (Auto) 1.1 % Baso % (Auto) 0.1 % Immature Gran # (Auto) 0.04 H (0.00-0.02) K/uL Neut # (Auto) 9.89 H (1.4-6.5) K/uL Lymph # (Auto) 2.21 (1.2-3.4) K/uL [place] # (Auto) 0.56 (0.11-0.59) K/uL Eos # (Auto) 0.14 (0-0.5) K/uL Baso # (Auto) 0.01 (0-0.2) K/uL Sodium 140 (136-145) mmol/L Potassium 4.2 (3.5-5.1) mmol/L Chloride 110 H (98-107) mmol/L Carbon Dioxide 27 (21-32) mmol/L Anion Gap 3.0 (3-11) BUN 15 (7-18) mg/dl Creatinine 0.65 (0.6-1.2) mg/dl Est Cr Clr Drug Dosing 127.8 ml/min Est GFR ( Amer) 120.0 Est GFR (Non-Af Amer) 103.5 BUN/Creatinine Ratio 22.3 H (10-20) Glucose 139 H (70-99) mg/dl Calcium 9.2 (8.5-10.1) mg/dl Total Bilirubin 0.5 (0.2-1) mg/dl AST 14 L (15-37) U/L ALT 37 (12-78) U/L Alkaline Phosphatase 70 (45-117) U/L Total Protein 7.8 (6.4-8.2) gm/dl Albumin 3.6 (3.4-5.0) gm/dl Globulin 4.2 H (2.5-4.0) gm/dl Albumin/Globulin Ratio 0.9 (0.9-2) Lipase 118 (73-393) U/L Urine Color Yellow Urine Appearance Clear (Clear) Urine pH 5.0 (4.5-7.5) Ur Specific [place] 1.010 (1.000-1.030) Urine Protein Negative (Negative) Urine Glucose (UA) Negative (Negative) Urine Ketones Negative (Negative) Urine Blood 1+ H (Negative) Urine Nitrite Negative (Negative) Urine Bilirubin Negative (Negative) Urine Urobilinogen Negative (Negative) Ur Leukocyte Esterase Negative (Negative) Urine RBC 0-4 (0-4) /hpf Urine WBC 0-5 (0-5) /hpf Ur Epithelial Cells 20-30 H (0-5) /lpf Urine Bacteria Negative (Negative) Imaging Data Attestation: I personally reviewed and interpreted this imaging study as john ws: My Impression: ABDOMEN X-RAY OBSTRUCTION SERIES: Small air fluid levels, concerning for a bowel obstruction. Radiologist's Impression: Radiology results as stated below per my review and t he radiologist's interpretation: CT ABDOMEN & PELVIS With Contrast: Comparison 12/06 There is small bowel obstruction which appears secondary to right periumbilical hernia containing segment of the small bowel. There is suspected mural thickening of herniated small bowel segments with some adjacent infiltration suggesting possible strangulation. Small amount of free fluid. Interval cholecystectomy. Likely fairly recent as there is focal fluid in ventr al body wall at site of suspected prior incision or port site. Minimal infiltration of cholecystectomy bed likely normal evolving postoperative appearance. No discrete fluid collection see in the cholecystectomy bed. Hepatosplenomegaly with suspected hepatic steatosis, hysterectomy and other unchanged incidental findings. Radiologist: James Vicente M.D. Study ready at 06:04 and initial results transmitted at 06:38. Blood Pressure Blood Pressure Findings: Elevated blood pressure Blood Pressure Disposition: further management by hospitalist (further management by surgeon) MDM Narrative The patient is a 48 year old female who presents to the Emergency Room with complaints of persistent abdominal pain that began at 1800, about 11 hours prior to arrival. The patient is approximately 2 weeks post cholecystectomy. She has had a normal postoperative course. Abdominal incisions have healed nicely and her pain had subsided. This pain was sudden in onset earlier this evening. X- ray showed signs concerning for a small bowel obstruction. CT scan confirmed a small bowel obstruction with a possible strangulated loop of bowel within a periumbilical hernia. The patient will be evaluated by Dr. Tong to go to the OR. She is comfortable at this time and hemodynamically stable. Impression & Plan Small bowel obstruction Discharge Plan Visit Data Chief Complaint: Abdominal Pain Stated Complaint: abd pain,vomiting ED Provider: Claudette Varma Discharge Problem: Small bowel obstruction Patient Disposition: Being Evaluated by Surgeon Discharge Instructions Interventions: ED Discharge Assessment Last Done: 02/08/19 08:01 The scribe's documentation has been prepared under my direction and personally reviewed by me in its entirety. I confirm that the note above accurately reflects all work, treatment, procedures, and medical decision making performed by me.
--- NOTE | 2019-02-08 07:56 | CT Scan Report ---
CT SCAN OF THE ABDOMEN AND PELVIS WITH IV CONTRAST CLINICAL HISTORY: Generalized abdominal pain. COMPARISON STUDY: Abdominal CT dated 12/06/2018. TECHNIQUE: Following the IV administration of 92 cc of Optiray 320, CT scan of the abdomen and pelvi s is performed from the lung bases to the proximal femora. Images are reviewed in the axial, sagittal , and coronal planes. IV contrast was administered without complication. A dose lowering technique wa s utilized adhering to the principles of ALARA. CT DOSE: 1118.87 mGycm FINDINGS: Lung bases: The heart is normal in size and without pericardial effusion. The lung bases are clear no ting bibasilar atelectasis. There is a tiny hiatal hernia. Liver: The contrast-enhanced liver is enlarged, measuring 24.8 cm in length. The liver demonstrates d iffusely diminished attenuation consistent with severe hepatic steatosis. There is no intrahepatic bi liary ductal dilatation. The hepatic veins and portal veins are patent. Gallbladder: Surgically absent noting clips in the gallbladder fossa. There is mild stranding/fluid i n the gallbladder fossa. Spleen: Normal in size and attenuation. Pancreas: Unremarkable. Adrenal glands: Unremarkable. Kidneys: The contrast enhanced kidneys are normal in size and without hydronephrosis. The kidneys enh ance symmetrically. Abdominal vasculature: The abdominal aorta is normal in course and caliber. Bowel: Proximal small bowel loops are distended and fluid-filled, measuring up to 3.7 cm in diameter. The distal small bowel and colon are decompressed and the appearance is consistent with a small sean l obstruction. The transition point is related to an incarcerated loop of small bowel contained withi n a ventral hernia in the anterior pelvic wall seen on image #[id number]. There is no pneumatosis intestinal is or portal venous gas. Mild wall thickening is suggested involving the incarcerated loop of bowel. The appendix is not identified. Peritoneum: There is no intraperitoneal free air. Trace free fluid is noted along the mesentery. Ther e is a tiny fat-containing umbilical hernia. An infraumbilical hernia just to the right of midline co ntains an incarcerated loop of small bowel. See above. Lymphadenopathy: None. Pelvic viscera: The bladder is decompressed and grossly unremarkable. The uterus is surgically absent . No adnexal lesion is seen. Skeletal structures: There is mild lumbosacral spondylosis. A hemitransitional left lumbosacral segme nt is incidentally noted. Degenerative change is noted in the sacroiliac joints and symphysis pubis. No lytic or blastic lesions are seen. IMPRESSION: 1. Findings are consistent with a small bowel obstruction secondary to an incarcerated loop of small bowel contained within an infraumbilical ventral hernia. 2. Mild wall thickening is suggested in the incarcerated loop. 3. No intraperitoneal free air is seen. 4. Hepatomegaly and severe hepatic steatosis. 5. Mild fluid/stranding within the gallbladder fossa is likely related to recent cholecystectomy. No organized fluid collection is identified. 6. Additional findings as above. Electronically signed by: Fredo Rizzo M.D. 02/08/2019 7:53 AM
[2019-02-08] MEDS ORDERED: HYDROmorphone INJ 1 MG/ML SYRINGE IV PRN (07:58)
[2019-02-08] MEDS ORDERED: ePHEDrine sulfate 50 MG/ML AMP IV PRN (07:58)
[2019-02-08] MEDS ORDERED: ATROPINE SULFATE 0.1 MG/ML 10ML SYR IV PRN (07:58)
[2019-02-08] MEDS ORDERED: ONDANSETRON INJ 2 MG/ML 2 ML VIAL IV PRN ×2 (07:58→10:20)
[2019-02-08] MEDS ORDERED: MIDAZOLAM HCL 1 MG/ML 2ML VIAL ONE (08:01)
[2019-02-08] MEDS ORDERED: fentaNYL citrate 100 MCG/2 ML VIAL ONE ×2 (08:02→10:49)
[2019-02-08] MEDS ORDERED: PROPOFOL IV EMULSION 10 MG/ML 20 ML VIAL IV ONE (08:03)
[2019-02-08] MEDS ORDERED: ROCURONIUM BROMIDE 10 MG/ML 5 ML VIAL ONE (08:03)
[2019-02-08] MEDS ORDERED: LIDOCAINE HCL 2% 2 ML VIAL/AMP(20MG/ML) INFIL ONE (08:03)
--- NOTE | 2019-02-08 08:09 | Anesthesiology Consultation ---
Date of Service February 08, 2019 Assessment & Plan (1) Encounter for pre-operative examination: Chart Review Chart Review: Acceptable Risk for Surgery Consults Requested none ASA [id number] Proposed Anesthesia Anesthesia Type: General Risk / Benefits Reviewed With: PT / POA / Parent / Guardian, Accepts Plan and Informed Consent Obtained History Surgery Operation Date: 02/08/19 08:15 Proposed Procedures p Bowel Resection - Arlen Tong MD Height/Weight Height: 5 ft 4 in Weight: 113.4 kg Allergies Allergy/AdvReac Type Severity Reaction Status Date / Time No Known Allergies Allergy Unknown Verified 02/08/19 04:46 Medications Home Medications Medication Instructions Recorded Confirmed Last Taken No Known Home Medications 02/08/19 02/08/19 Unknown Active Medications Generic Name Dose Route Start Last Admin Trade Name Freq PRN Reason Stop Dose Admin Sodium Chloride 500 mls @ 125 mls/hr 02/08/19 07:15 02/08/19 07:22 Nss IV 03/10/19 07:14 125 mls/hr .Q4H LAILA Administration Ioversol 92 ml 02/08/19 05:55 02/08/19 05:56 Optiray 320 100ml IV 02/12/19 05:54 92 ml ONCE PRN Administration Interaction Checking NPO Date Last Intake of Fluids: 02/08/19 Time Last Intake of Fluids: 00:00 Date Last Intake of Solids: 02/07/19 Time Last Intake of Solids: 17:00 Past Medical History Medical History History of uterine cancer 5 years ago, s/p partial hyster Incisional hernia Morbid obesity Exercise / Class Metabolic Activity II 4-5 Yardwork/Stairs/Walk up hill Past Surgical History Surgical History Hx of cholecystectomy History of section 4 History of colonoscopy History of dilatation and curettage History of hysterectomy PARTIAL Past Anesthesia History No Hx of Anesthesia Complications and No Family Hx of Anesthesia Complications History of PONV No Hx of PONV and No Hx of Motion Sickness Social History Smoking Status: Never smoker Smoking cigarettes per day: 0 Hx Alcohol Use: Yes Hx Substance Use: No Physical Exam Vital Signs Last Vital Signs Temp 97.5 F L 02/08/19 04:37 Pulse 73 02/08/19 07:31 Resp 17 02/08/19 07:31 BP 183/106 H 02/08/19 07:31 Pulse Ox 99 02/08/19 07:31 ENMT Mouth: + dentures (Upper) Thyromental Distance: > or= 3.5 Finger Breadths Mallampati Class: II Neck normal visual inspection Respiratory normal respiratory effort Auscultation: lungs clear to auscultation bilaterally Cardiovascular Rate/Rhythm: regular rate and regular rhythm Testing Laboratory Results 02/08/19 05:01 02/08/19 05:01 Urine Color Yellow 02/08/19 06:51 Urine Appearance Clear (Clear) 02/08/19 06:51 Urine pH 5.0 (4.5-7.5) 02/08/19 06:51 Ur Specific [place] 1.010 (1.000-1.030) 02/08/19 06:51 Urine Protein Negative (Negative) 02/08/19 06:51 Urine Glucose (UA) Negative (Negative) 02/08/19 06:51 Urine Ketones Negative (Negative) 02/08/19 06:51 Urine Nitrite Negative (Negative) 02/08/19 06:51 Ur Leukocyte Esterase Negative (Negative) 02/08/19 06:51 Urine RBC 0-4 /hpf (0-4) 02/08/19 06:51 Urine WBC 0-5 /hpf (0-5) 02/08/19 06:51 Ur Epithelial Cells 20-30 /lpf (0-5) H 02/08/19 06:51 Electrocardiogram Date: 01/03/19 Findings: + NSR @ (71) Chest X-Ray Date: 01/03/19 IMPRESSION: Cardiomegaly without acute process.
[2019-02-08] MEDS ORDERED: CEFAZOLIN 250 MG/ML 1 GM VIAL ONE (08:18)
[2019-02-08] MEDS ORDERED: SODIUM CHLORIDE 0.9% INJ 10 ML VIAL ONE (08:20)
[2019-02-08] MEDS ORDERED: BUPIVACAINE/EPINEPHRINE 0.5% MPF 1:200,000 30 ML VIAL ONE (08:21)
--- NOTE | 2019-02-08 08:22 | History & Physical Report ---
Date of Service February 08, 2019 Assessment & Plan (1) S/P cholecystectomy: Doing well. Present on Admission?: Yes (2) Incarcerated umbilical hernia: Incarcerated incisional hernia from prior partial hysterectomy. Hernia contains bowel and is causing a small bowel obstruction. Discussed open repair with mesh - alternatives of dissolving mesh (if infection present) vs typical mesh reviewed. Risks of bleeding, infection, need for partial small bowel resection, recurrence (much higher with vicryl type meshes), mesh infection requiring removal all discussed. She would prefer lap repair but explained that I do not perform those operations. Given urgency of her situation, will proceed with open repair of her incarcerated incisional hernia. Present on Admission?: Yes History of Present Illness 48 yr old woman with history of prior open partial hysterectomy, C-sxn and D&C who recently underwent a laparoscopic cholecystectomy on 01/29/[address] Black. At the time, incisional hernia repair was planned but was not done due to "spillage of bile" by patient report. She was healing well but at 6 pm yesterday developed diffuse abdominal pain, radiated through entire abdomen, crampy, severe. Vomiting started at midnight. [place] chilled but no fevers. When pain persisted, she came to the ER and was found to have incarcerated incisional hernia containing bowel. As the generators are being tested today, transfer was attempted to [facility] but they were unable to accept patient. Primary Care Provider: Brett Calvin MD Allergies Allergy/AdvReac Type Severity Reaction Status Date / Time No Known Allergies Allergy Unknown Verified 02/08/19 04:46 Home Medications Home Medications Medication Instructions Recorded Confirmed Type No Known Home Medications 02/08/19 02/08/19 History Past Med/Surg History Medical History History of uterine cancer 5 years ago, s/p partial hyster Incisional hernia Morbid obesity Surgical History Hx of cholecystectomy History of section 4 History of colonoscopy History of dilatation and curettage History of hysterectomy PARTIAL Social History Preferred Language: Cymro Communication Ability: Effective Beliefs That Will Affect Care: None Current Living Situation: Spouse Feels Safe at Home: Yes Smoking Status: Never smoker Cigarettes Per Day: 0 Second Hand Exposure: No Hx Alcohol Use: Yes Hx Substance Use: No Review of Systems Constitutional: + chills Eyes: no problem reported Ear, Nose, Mouth, Throat: no problem reported Respiratory: no problem reported Cardiovascular: no problem reported Gastrointestinal: as per Subjective / HPI Genitourinary: no problem reported Neurologic: no problem reported Psychiatric: no problem reported Physical Exam Constitutional: well developed; no acute distress Eyes: PERRL, conjunctivae normal, anicteric sclerae Respiratory: normal respiratory effort, lungs clear to auscultation Cardiovascular: RRR, no murmur, no edema Gastrointestinal (Abdomen): Inspection/Auscultation: + hypoactive bowel sounds Percussion/Palpation: + abdomen tender, abdomen soft and + hernia (incarcerated hernia to right of umbilicus); no guarding and no hepatomegaly well healed lap donovan and prior lower midline incisions Neurologic: PERRL, EOMI, accommodation nl, no face palsy, no dysarthria Psychiatric: A+Ox3, euthymic affect Results & Data Vital Signs (Past 12 Hours) Vital Signs Temp Pulse Pulse Resp BP BP Pulse Ox 02/08/19 07:31 73 17 183/106 H 99 02/08/19 07:16 69 21 182/103 H 97 02/08/19 06:30 73 16 150/92 H 98 02/08/19 06:10 79 16 98 02/08/19 06:00 72 17 157/97 H 97 02/08/19 05:57 71 17 155/79 H 97 02/08/19 05:56 73 7 L 02/08/19 05:40 74 75 17 138/80 96 02/08/19 05:37 73 21 138/80 96 02/08/19 05:30 74 18 94 02/08/19 05:29 75 02/08/19 05:13 76 26 H 02/08/19 05:05 95 02/08/19 04:37 36.4 C L 84 16 168/96 H [address] mildly elevated at 12.[address] [facility] [place] [phone] Scan Report Patient: MELODY DELGADO Date: 02/08/19 MR#: [id number]: [address] [facility] Acct ID:[id number]: Date: [address] Zip: [place] [address] Age: 48Location: ED Sex: F Room/Bed: Att Phy: Diagnosis: abd pain,vomiting Jeni Phy: Brett Calvin M.D.Service Date: 02/08/19 Fam Phy: Interpreting Phy: Fredo Rizzo MD Admit Phy: Ordering Phy: Claudette Varma D.O. cc: ~ CT SCAN OF THE ABDOMEN AND PELVIS WITH IV CONTRAST CLINICAL HISTORY: Generalized abdominal pain. COMPARISON STUDY: Abdominal CT dated 12/06/2018. TECHNIQUE: Following the IV administration of 92 cc of Optiray 320, CT scan of the abdomen and pelvis is performed from the lung bases to the proximal femora. Images are reviewed in the axial, sagittal, and coronal planes. IV contrast was administered without complication. A dose lowering technique was utilized adhering to the principles of ALARA. CT DOSE: 1118.87 mGycm FINDINGS: Lung bases: The heart is normal in size and without pericardial effusion. The lung bases are clear noting bibasilar atelectasis. There is a tiny hiatal hernia. Liver: The contrast-enhanced liver is enlarged, measuring 24.8 cm in length. The liver demonstrates diffusely diminished attenuation consistent with severe hepatic steatosis. There is no intrahepatic biliary ductal dilatation. The hepatic veins and portal veins are patent. Gallbladder: Surgically absent noting clips in the gallbladder fossa. There is mild stranding/fluid in the gallbladder fossa. Spleen: Normal in size and attenuation. Pancreas: Unremarkable. Adrenal glands: Unremarkable. Kidneys: The contrast enhanced kidneys are normal in size and without hydronephrosis. The kidneys enhance symmetrically. Abdominal vasculature: The abdominal aorta is normal in course and caliber. Bowel: Proximal small bowel loops are distended and fluid-filled, measuring up to 3.7 cm in diameter. The distal small bowel and colon are decompressed and the appearance is consistent with a small bowel obstruction. The transition point is related to an incarcerated loop of small bowel contained within a ventral hernia in the anterior pelvic wall seen on image #[id number]. There is no pneumatosis intestinalis or portal venous gas. Mild wall thickening is suggested involving the incarcerated loop of bowel. The appendix is not identified. Peritoneum: There is no intraperitoneal free air. Trace free fluid is noted along the mesentery. There is a tiny fat-containing umbilical hernia. An infraumbilical hernia just to the right of midline contains an incarcerated loop of small bowel. See above. Lymphadenopathy: None. Pelvic viscera: The bladder is decompressed and grossly unremarkable. The uterus is surgically absent. No adnexal lesion is seen. Skeletal structures: There is mild lumbosacral spondylosis. A hemitransitional left lumbosacral segment is incidentally noted. Degenerative change is noted in the sacroiliac joints and symphysis pubis. No lytic or blastic lesions are seen. IMPRESSION: 1. Findings are consistent with a small bowel obstruction secondary to an incarcerated loop of small bowel contained within an infraumbilical ventral hernia. 2. Mild wall thickening is suggested in the incarcerated loop. 3. No intraperitoneal free air is seen. 4. Hepatomegaly and severe hepatic steatosis. 5. Mild fluid/stranding within the gallbladder fossa is likely related to recent cholecystectomy. No organized fluid collection is identified. 6. Additional findings as above.n
[2019-02-08] MEDS ORDERED: CEFAZOLIN 2000MG 2,000 MG/15 ML SYR IV ONE (08:26)
[2019-02-08] MEDS ORDERED: NEOSTIGMINE METHYLSULFATE 5 MG/5 ML SYR ONE (09:58)
[2019-02-08] MEDS ORDERED: GLYCOPYRROLATE 0.2 MG/ML VIAL ONE (09:59)
[2019-02-08] MEDS ORDERED: OXYCODONE/ACETAMINOPHEN 5mg/325mg TAB PO PRN (10:20)
[2019-02-08] MEDS ORDERED: MoRPHine SULFATE 4 MG/ML 1 ML CARP\\VIAL IV PRN (10:20)
[2019-02-08] MEDS ORDERED: MoRPHine SULFATE 2 MG/ML CARP IV PRN (10:20)
--- NOTE | 2019-02-08 10:20 | XRay Report ---
PA CHEST WITH ABDOMINAL SERIES CLINICAL HISTORY: Generalized abdominal pain. FINDINGS: A PA chest radiograph is compared to study dated 01/03/2019. The cardiac silhouette is top normal for projection. The pulmonary vasculature is noncongested. There is mild bibasilar atelectasis. No airspa ce consolidation or large pleural effusion is identified. No pneumothorax is seen. The bony thorax is grossly intact. Degenerative changes noted in the thoracic spine. Supine and erect abdominal radiographs are correlated with abdominal CT dated 12/06/2018. Cholecystect kj clips are noted in the right upper quadrant. There is no radiographic evidence of high-grade sean l obstruction. Scattered air-fluid levels are noted throughout the bowel. No evidence of intraperiton eal free air is seen. The liver is enlarged. There are no abnormal abdominal calcifications. The lumb osacral spine and bony pelvis appear intact. Degenerative sclerosis is noted in the pubic symphysis. IMPRESSION: 1. No active disease in the chest. 2. There is no radiographic evidence of high-grade bowel obstruction or intraperitoneal free air. Electronically signed by: Fredo Rizzo M.D. 02/08/2019 10:19 AM
--- NOTE | 2019-02-08 10:20 | Operative Report ---
Post Operative Report Pre & Post Diagnosis Operation Date: 02/08/19 08:15 Pre-Op Diagnosis: Incarcerated incisional hernia containing bowel Post-Op Diagnosis: Incarcerated incisional hernia containing bowel Procedure Operation Date: 02/08/19 08:15 Actual Procedures p Open repair of incarcerated ventral incisional hernia with mesh- Arlen Tong MD Surgeon Arlen Tong MD Speedometer Mechanic none Estimated Blood Loss 20 Findings Consistent with Post-Op Diagnosis Specimens none Description of Procedure see dictated operative note. Very scarred in loop of bowel in hernia located to right of umbilicus but no strangulation. Smaller defects along the midline. Repaired with underlay large C-Qur V patch. I attest to the content of the Intraoperative Record and any orders documented therein. Any exceptions are noted below.
[2019-02-08] MEDS: fentaNYL citrate 100 MCG/2 ML VIAL IV PRN ×2 (10:50→10:55)
--- NOTE | 2019-02-08 11:02 | Anesthesiology Progress Note ---
Date of Service February 08, 2019 Anesthesia Post Procedure Vital Signs Vital Signs: Temp Pulse Pulse Pulse Resp BP BP 02/08/19 10:55 75 16 151/91 H 02/08/19 10:45 78 15 158/93 H 02/08/19 10:35 79 14 142/82 H 02/08/19 10:26 97.3 F L 83 16 147/91 H 02/08/19 07:31 73 17 183/106 H 02/08/19 07:16 69 21 182/103 H 02/08/19 06:30 73 16 150/92 H 02/08/19 06:10 79 16 02/08/19 06:00 72 17 157/97 H 02/08/19 05:57 71 17 155/79 H 02/08/19 05:56 73 7 L 02/08/19 05:40 74 75 17 138/80 02/08/19 05:37 73 21 138/80 02/08/19 05:30 74 18 02/08/19 05:29 75 02/08/19 05:13 76 26 H 02/08/19 05:05 02/08/19 04:37 97.5 F L 84 16 168/96 H Pulse Ox 02/08/19 10:55 97 02/08/19 10:45 99 02/08/19 10:35 99 02/08/19 10:26 97 02/08/19 07:31 99 02/08/19 07:16 97 02/08/19 06:30 98 02/08/19 06:10 98 02/08/19 06:00 97 02/08/19 05:57 97 02/08/19 05:56 02/08/19 05:40 96 02/08/19 05:37 96 02/08/19 05:30 94 02/08/19 05:29 02/08/19 05:13 02/08/19 05:05 95 02/08/19 04:37 97 Pain Intensity Left Abdomen: Pain Intensity: 2 Right Abdomen: Pain Intensity: 5 Transfer of Care Handoff Completed per policy Notes Mental Status: alert / awake / arousable and participated in evaluation Patient Amnestic to Procedure: Yes Nausea / Vomiting: adequately controlled Pain: adequately controlled Airway Patency, RR, SpO2: stable & adequate BP & HR: stable & adequate Hydration State: stable & adequate Anesthetic Complications: no major complications apparent and Pt Satisfied with anesthetic care
[2019-02-08] MEDS: LACTATED RINGER'S 1,000 ML IV SCH ×2 (11:59→20:42)
[2019-02-08] MEDS: MoRPHine SULFATE 2 MG/ML CARP IV PRN (12:02)
[2019-02-08] MEDS: OXYCODONE/ACETAMINOPHEN 5mg/325mg TAB PO PRN ×3 (12:29→22:30)
[2019-02-08] MEDS: HEPARIN SOD 5,000 UNIT/0.5 ML VIAL SQ SCH ×2 (14:27→21:01)
[2019-02-09] MEDS: MoRPHine SULFATE 2 MG/ML CARP IV PRN (00:33)
[2019-02-09] MEDS: OXYCODONE/ACETAMINOPHEN 5mg/325mg TAB PO PRN ×3 (03:55→14:13)
[2019-02-09] MEDS: HEPARIN SOD 5,000 UNIT/0.5 ML VIAL SQ SCH ×3 (05:30→21:46)
[2019-02-09] MEDS: LACTATED RINGER'S 1,000 ML IV SCH ×2 (05:45→15:37)
--- NOTE | 2019-02-09 09:33 | Surgery Progress Note ---
Date of Service February 09, 2019 Assessment & Plan (1) Incarcerated umbilical hernia: s/p repair of incarcerated incisional/ umbilical hernia causing small bowel obstruction. Overall doing well but has not had return of bowel function. Will keep on clear liquids. Ambulate as tolerated. Will recheck labs in am. Present on Admission?: Yes Subjective Feels OK. Using 2 percocet and morphine intermittently for pain. Ambulated in her room. No nausea but also not hungry yet. Has not passed flatus. No bowel movement. Review of Systems Review of Systems: All systems reviewed & are unremarkable except as noted in HPI & below Physical Exam Constitutional: WD/WN, vitals as above Respiratory: normal respiratory effort, lungs clear to auscultation Cardiovascular: RRR, no murmur, no edema Gastrointestinal (Abdomen): Inspection/Auscultation: abdomen normal to inspection; abdomen not distended and + abnormal bowel sounds (hypoactive) Percussion/Palpation: + abdomen tender (mild, right side) incision clean and intact Neurologic: moves all extremities Psychiatric: A+Ox3, euthymic affect Results & Data Vital Signs (Past 12 Hours) Vital Signs Temp Pulse Resp BP Pulse Ox 02/09/19 07:24 36.8 C 67 19 114/75 92 02/09/19 03:44 37.0 C 79 14 99/66 L 94 02/08/19 23:47 37.0 C 74 14 107/67 93
--- NOTE | 2019-02-09 21:35 | Operative Report ---
DATE OF OPERATION: 02/08/2019 DATE OF PROCEDURE: 02/08/2019 PREOPERATIVE DIAGNOSIS: Incarcerated incisional hernia containing small bowel causing bowel obstruction. POSTOPERATIVE DIAGNOSIS: Incarcerated incisional hernia containing small bowel causing bowel obstruction. OPERATIVE PROCEDURE: Open repair of incarcerated ventral incisional hernia with mesh. ANESTHESIA: General endotracheal anesthesia. SURGEON: Arlen Tong MD RETAIL ACCOUNT EXECUTIVE: None. ESTIMATED BLOOD LOSS: 20 mL. SPECIMENS: None. OPERATIVE FINDINGS: Small 3-4 cm hernia located just to right of umbilicus with 2 smaller defects located in midline, all periumbilical, extremely scarred in loop of small bowel in this hernia, which was not ischemic. This bowel; however, was mildly dilated. Extensive intraabdominal adhesions extending inferiorly from the hernia sac. INDICATIONS: Ms. Olmos is a 48-year-old woman who recently underwent a laparoscopic cholecystectomy about 10 days ago. This was done in the setting of a known incisional hernia and planned incisional hernia repair. However, at that time, there was spillage of bile and thus the incisional hernia repair was not performed. She presented to the Emergency Room with acute onset of sharp abdominal pain and nausea and vomiting. Imaging showed a loop of small bowel in the small hernia located to the right of the umbilicus. She does have a history of a prior partial hysterectomy through an open midline incision. Given the loop of small bowel present, she was consented for emergent repair. PROCEDURE: The patient received antibiotics preoperatively. After the induction of general endotracheal anesthesia, she was placed in sequential compression devices. Her abdomen was sterilely prepped and draped. She had her prior midline incision was opened periumbilically. This was carried down to the midline where 2 small defects were noted. The umbilicus was transected at its base and followed over to the right side where the hernia sac was identified. The hernia was noted to be extremely scarred, and on opening the hernia, a very scarred and loop of small bowel could be seen. This was carefully dissected off of the fascia. The peritoneal cavity was explored for just a short distance of about an inch and a half on all sides of the fascial defect, which were joined into 1 larger fascial defect measuring about 6 x 6 cm. The adhesions of the bowel to the anterior abdominal wall were taken down over the sling surrounding the hernia. The abdomen, could be seen due to her obesity, was inspected and no other abnormalities were noted just in this vicinity. As the bowel was still viable, this was reduced back into the peritoneal cavity. The hernia was then repaired with a large C-QUR V-patch which was placed into the abdomen and then secured on all sides with 0 PDS sutures to the fascia. The fascia and hernia sac were closed in the midline over the mesh. The straps were incorporated into this closure. This was done with a running 0 PDS suture. The wound was irrigated. A 30 mL of local anesthesia in the form of 0.5% Marcaine with epinephrine were injected into the incision. The umbilicus was tacked back down with a Vicryl stitch. The subcutaneous layer was closed with interrupted 3-0 Vicryl stitches. The incision was closed with a running subcuticular 4-0 Vicryl suture. Steri-Strips and sterile dressings were applied. She was awakened and taken to recovery in stable condition. I attest to the content of the Intraoperative Record and any orders documented therein. Any exception s are noted below.
[2019-02-09] MEDS: ACETAMINOPHEN 325 MG TAB PO PRN (23:59)
[2019-02-10] MEDS: LACTATED RINGER'S 1,000 ML IV SCH ×3 (00:34→19:22)
[2019-02-10] MEDS: HEPARIN SOD 5,000 UNIT/0.5 ML VIAL SQ SCH ×3 (05:56→21:46)
[2019-02-10 06:27] LABS: Basophils # (auto) 0.02 K/uL (0-0.2); Basophils % (auto) 0.2 %; Eosinophils # (auto) 0.09 K/uL (0-0.5); Eosinophils % (auto) 1.1 %; Hematocrit (blood only) 34.5 % (37-47); Hemoglobin 11.3 g/dL (12.0-16.0); Immature Granulocytes # (auto) 0.01 K/uL (0.00-0.02); Immature Granulocytes % (auto) 0.1 %; Lymphocytes # (auto) 2.49 K/uL (1.2-3.4); Lymphocytes % (auto) 29.3 %; Mean Corpuscular Hgb Conc 32.8 g/dL (32-36); Mean Corpuscular Volume 81.6 fL (80-100); Mean Platelet Volume 8.7 fL (7.4-10.4); Monocytes # (auto) 0.86 K/uL (0.11-0.59); Monocytes % (auto) 10.1 %; Neutrophils # (auto) 5.04 K/uL (1.4-6.5); Neutrophils % (auto) 59.2 %; Platelet Count 176 K/uL (130-400); RDW Coefficient of Variation 14.6 % (11.5-14.5); RDW Standard Deviation 43.5 fL (36.4-46.3); Red Blood Count 4.23 M/uL (4.2-5.4); White Blood Count 8.51 K/uL (4.8-10.8)
[2019-02-10 06:58] LABS: BUN Creatinine Ratio 12.6 (10-20); Calcium 8.5 mg/dl (8.5-10.1); Creatinine Clr Calc Pharmacy 168.4 ml/min; Est GFR (African American) 129.9; Est GFR (Non-African American) 112.1; Potassium 3.5 mmol/L (3.5-5.1)
[2019-02-10] MEDS: ACETAMINOPHEN 325 MG TAB PO PRN ×3 (07:41→22:09)
--- NOTE | 2019-02-10 08:39 | Anesthesiology Progress Note ---
Date of Service February 10, 2019 Anesthesia Post Procedure Vital Signs Vital Signs: Temp Pulse Resp BP BP Pulse Ox 02/10/19 07:12 37.1 C 79 16 132/77 91 02/10/19 00:33 37.5 C 91 02/09/19 23:10 37.8 C H 88 16 140/78 93 02/09/19 15:17 37.1 C 76 16 118/75 92 02/09/19 11:15 37.1 C 75 16 122/70 92 Pain Intensity Left Abdomen: Pain Intensity: 2 Right Abdomen: Pain Intensity: 3 Abdomen: Pain Intensity: 2 Notes Mental Status: alert / awake / arousable Patient Amnestic to Procedure: Yes Nausea / Vomiting: adequately controlled Pain: adequately controlled Airway Patency, RR, SpO2: stable & adequate BP & HR: stable & adequate Hydration State: stable & adequate Anesthetic Complications: no major complications apparent
--- NOTE | 2019-02-10 14:06 | Surgery Progress Note ---
Date of Service pt is doing fine, passed gas, pt tolerated clear diet, no nausea, no vomiting, February 10, 2019 Assessment & Plan (1) Incarcerated umbilical hernia: s/p repair of incarcerated incisional/ umbilical hernia causing small bowel obstruction. Overall doing well but has not had return of bowel function. Will keep on clear liquids. Ambulate as tolerated. Will recheck labs in am. 02/10/2019 2:05PM doing fine, passed gas, soft diet. possible go home tomorrow will F/U Physical Exam Constitutional: WD/WN, vitals as above well developed and well nourished Neck: trachea midline, no thyromegaly Respiratory: normal respiratory effort, lungs clear to auscultation normal respiratory effort Cardiovascular: RRR, no murmur, no edema Rate/Rhythm: regular rate, regular rhythm and + bradycardic Gastrointestinal (Abdomen): soft, NT, ND the incision intact, no redness, no drainage, BS+ Neurologic: awake Psychiatric: A+Ox3, euthymic affect Orientation: alert and oriented x 3 Results & Data Vital Signs (Past 12 Hours) Vital Signs Temp Pulse Resp BP Pulse Ox 02/10/19 07:12 37.1 C 79 16 132/77 91 Laboratory Results Abnormal lab results 02/10/19 02/10/19 Range/Units 06:08 06:08 Hgb 11.3 L (12.0-16.0) g/dL Hct 34.5 L (37-47) % RDW Coeff of Julio Cesar 14.6 H (11.5-14.5) % Richardson # (Auto) 0.86 H (0.11-0.59) K/uL BUN 6 L (7-18) mg/dl Creatinine 0.51 L (0.6-1.2) mg/dl
[2019-02-10] MEDS ORDERED: POLYETHYLENE (MIRALAX) 17 GM PACK PO PRN (14:08)
[2019-02-11] MEDS: LACTATED RINGER'S 1,000 ML IV SCH ×2 (05:54→16:26)
[2019-02-11] MEDS: HEPARIN SOD 5,000 UNIT/0.5 ML VIAL SQ SCH ×2 (05:55→13:55)
[2019-02-11 07:27] LABS: Hematocrit (blood only) 35.6 % (37-47); Hemoglobin 11.8 g/dL (12.0-16.0); Mean Corpuscular Hgb Conc 33.1 g/dL (32-36); Mean Corpuscular Volume 81.5 fL (80-100); Mean Platelet Volume 8.7 fL (7.4-10.4); Platelet Count 209 K/uL (130-400); RDW Coefficient of Variation 14.2 % (11.5-14.5); RDW Standard Deviation 42.7 fL (36.4-46.3); Red Blood Count 4.37 M/uL (4.2-5.4); White Blood Count 7.37 K/uL (4.8-10.8)
--- NOTE | 2019-02-11 17:12 | Surgery Progress Note ---
Date of Service pt is doing fine, she tolearted the diet, passed BM x3, pt denies nausea, no vomiting, February 11, 2019 Assessment & Plan (1) Incarcerated umbilical hernia: s/p repair of incarcerated incisional/ umbilical hernia causing small bowel obstruction. Overall doing well but has not had return of bowel function. Will keep on clear liquids. Ambulate as tolerated. Will recheck labs in am. 02/10/2019 2:05PM doing fine, passed gas, soft diet. possible go home tomorrow will F/U 02/11/2019 5:11PM pt wants to hoe today, the post-op care instruction was given, F/U Dr. Tong in 2 weeks, Physical Exam Constitutional: WD/WN, vitals as above well developed and well nourished Neck: trachea midline, no thyromegaly Respiratory: normal respiratory effort, lungs clear to auscultation normal respiratory effort Cardiovascular: RRR, no murmur, no edema Rate/Rhythm: regular rate, regular rhythm and + bradycardic Gastrointestinal (Abdomen): Percussion/Palpation: abdomen soft no tenderness, no distend, BS +, incision intact, no redness, Neurologic: awake Psychiatric: A+Ox3, euthymic affect Orientation: alert and oriented x 3 Results & Data Vital Signs (Past 12 Hours) Vital Signs Temp Pulse Resp BP Pulse Ox 02/11/19 15:08 37.5 C 79 16 153/87 H 95 02/11/19 07:24 37 C 67 18 129/85 97
[2019-02-11] MEDS: OXYCODONE/ACETAMINOPHEN 5mg/325mg TAB PO PRN (17:15)
--- NOTE | 2019-02-12 01:03 | Discharge Summary ---
ADMITTING DIAGNOSIS: Incarcerated incisional hernia. DISCHARGE DIAGNOSIS: Incarcerated incisional hernia. OPERATION: Open repair incarcerated incisional hernia by Dr. Arlen Tong. DETAILS OF DISCHARGE SUMMARY: This is a 48-year-old female who presented to ED with incarcerated incisional hernia and the patient was taken to the OR. Dr. Tong did open repair of incarcerated incisional hernia and patient tolerated the procedure well. After the procedure, the patient was transferred back to her regular floor and the patient is doing fine. She tolerated the diet. No nausea, no vomiting, passed stool, and the patient wanted to go home today. PHYSICAL EXAMINATION: VITAL SIGNS: The temperature is 37.5, the respiratory rate is 16, the heart rate is 79, O2 saturation 95% on room air, the blood pressure 153/87. GENERAL: The patient is alert, awake, oriented x3. HEENT: Within normal limitation. NEUROLOGIC: Exam is intact. NECK: No JVD. CHEST: Bilateral lung sounds clear. HEART: Normal S1, S2. No murmur. ABDOMEN: Soft, nondistended. No significant tenderness on the incisions site, incision intact. No redness. No drainage. EXTREMITIES: No edema. LABORATORY DATA: WBC is 7.3, hemoglobin 11.8. PLAN: The patient wanted to go home today. I gave patient postop care instructions and patient understands. Dr. Tong will follow up with the patient in 2 weeks.
== END 2019-02-11 18:45 | disposition home or self-care (01) | DRG 354 ==
LOC: ED 04:35 → ASU 08:06 → 3W 08:10

== ENCOUNTER 2025-04-02 21:45 | Inpatient (IN) ==
[2025-04-02] MEDS: MoRPHine SULFATE 2 MG/ML CARP IV STA (22:06)
--- NOTE | 2025-04-02 23:08 | XRay Report ---
Exam(s): XR HIP + PELVIS, 1 view EXAM: XR Left Hip With Pelvis, 3 Views CLINICAL HISTORY: Reason for exam: fall. TECHNIQUE: Three views of the left hip with pelvis. COMPARISON: No relevant prior studies available. FINDINGS: Bones/joints: Nondisplaced intertrochanteric fracture of the left femur, with mild displacement of the lesser trochanter fragment. No other fracture. No dislocation. Soft tissues: Unremarkable. IMPRESSION: 1. Nondisplaced intertrochanteric fracture of the LEFT femur, with mild displacement of the lesser trochanter fragment. Electronically signed by: Johanne Valerio M.D. 04/02/25 23:07 PM
[2025-04-02] MEDS ORDERED: MoRPHine SULFATE 4 MG/ML 1 ML CARP\\VIAL IV PRN (23:14)
--- NOTE | 2025-04-02 23:15 | XRay Report ---
Exam(s): XR LEFT KNEE, 3 views EXAM: XR Left Knee, 3 Views CLINICAL HISTORY: Reason for exam: fall. TECHNIQUE: Three views of the left knee. Significant limited evaluation due to patient positioning, the knee is bent. COMPARISON: Left knee x-ray 05/15/2024. FINDINGS: Bones/joints: Limited evaluation of the medial and lateral joint space due to patient positioning. Mild patellofemoral joint osteoarthritis. No definite acute fracture. No dislocation. Soft tissues: Unremarkable. No joint effusion. IMPRESSION: 1. No joint effusion or definite acute bony abnormality. 2. Limited evaluation due to patient positioning. Electronically signed by: Johanne Valerio M.D. 04/02/25 23:14 PM
[2025-04-02] MEDS: MoRPHine SULFATE 2 MG/ML CARP IV PRN (23:53)
[2025-04-02] MEDS: ONDANSETRON INJ 2 MG/ML 2 ML VIAL IV STA (23:53)
[2025-04-02] MEDS: SODIUM CHLORIDE 0.9% 1,000 ML IV SCH (23:54)
--- NOTE | 2025-04-02 23:54 | Emergency Department Note ---
History of Present Illness General Chief complaint: Hip Pain Stated complaint: GLF, L Hip Pain Time Seen by Provider: 04/02/25 21:57 History of Present Illness Provider complaint: Left hip pain Onset (ago): hour(s) 1 Maximum Pain Intensity: 9 54-year-old female presents emergency department for fall. Patient states her left knee buckled and she had a ground-level fall. Patient is reporting pain in her left hip and left knee. Patient states she did not hit her head. Home Medications Medication Instructions Recorded Confirmed Type No Known Home Medications 02/08/19 02/08/19 History oxycodone-acetaminophen 5 mg-325 2 tab PO Q6H PRN pain #30 tabs 02/09/19 Rx mg tablet (Endocet) Allergies Allergy/AdvReac Type Severity Reaction Status Date / Time No Known Allergies Allergy Unknown Verified 02/08/19 04:46 Past Med/Surg History Problem List (Updated 04/03/25 @ 00:01 by Tera Borden MD) Closed hip fracture (Acute) Incarcerated umbilical hernia Small bowel obstruction (Acute) Hx of cholecystectomy Cholelithiasis S/P cholecystectomy Encounter for pre-operative examination Abdominal pain (Acute 06/23/13) Anemia (Acute) Fibroid (bleeding) (uterine) (Acute 06/26/13) Fibroid tumor (Chronic) Anemia (Acute) Abnormal uterine bleeding (Acute) Menorrhagia (Acute 07/18/13) Complex atypical endometrial hyperplasia (Acute 07/18/13) Wound dehiscence (Acute) Nausea vomiting and diarrhea (Acute) Urinary tract infection (Acute) Medical History (Updated 04/03/25 @ 00:01 by Tera Borden MD) Morbid obesity Incisional hernia History of uterine cancer 5 years ago, s/p partial hyster Surgical History History of colonoscopy History of section 4 History of dilatation and curettage History of hysterectomy PARTIAL Social History Smoking Status: Never smoker Cigarettes Per Day: 0; Second Hand Exposure: No; Do You Dip or Chew Tobacco: No; Hx Alcohol Use: No Hx Substance Use: No Preferred Language: Zimbabwean Communication Ability: Effective Customer Advisor Specialist Required: No Beliefs That Will Affect Care: None Current Living Situation: Spouse Feels Safe at Home: Yes Assistive Devices: None Physical Exam Vital Signs Vital Signs - 24 hr 04/02/25 21:56 04/02/25 21:58 Temperature 36.6 C Temperature Source Oral Pulse Rate 101 H 102 H Respiratory Rate 20 Respiratory Effort / Characteristics Non-Labored Spontaneous Respiratory Depth Normal Blood Pressure 107/82 Blood Pressure Mean 90 Pulse Oximetry 95 Oxygen Delivery Method Room Air Sepsis Recent Fever Within 48 Hours No Sepsis New/Unexplained Change in Mental Status No Sepsis Action Taken by Nursing No Action Required Primary Survey Airway: Intact Breathing: Normal, breath sounds equal bilaterally Circulation: Skin warm, distal pulses 2+, capillary refill less than 2 seconds Disability Pupils: Equal and reactive to light, 2 mm, brisk GCS: 15, E = 4 V=5 M= 6 Motor Function: Moves all extremities. Sensory: No deficits Secondary Survey HEAD: Normocephallic atruamatic EYES: Pupils round reactive to light, conjunctiva clear, extraocular movements intact, no raccoons eyes ENT: no roblero's sign, nares patent, oropharynx clear NECK: No JVD, no cervical spine tenderness HEART: Regular rate and rhythm LUNGS: Clear to auscultation bilaterally. CHEST: Chest wall non-tender, no bruising/deformity. No crepitus. ABD: soft, non-tender, no rebound or guarding, MUSC: Pelvis stable. Pain on palpation of the left hip. Left lower extremity is shortened and externally rotated NEURO: CNII-XII grossly intact, no sensory deficits Course Course 2156: The patient was evaluated in room A9. A complete history and physical exam was performed Cardiac monitoring: An order was placed for continuous cardiac monitoring. The monitor shows a rate of 100 with sinus rhythm interpreted by mo 2315: Vital signs stable. Patient has left-sided hip fracture. Patient will be admitted to the [facility] team with orthopedics on consult. Administered Medications Sodium Chloride (Nss) 1,000 mls @ 75 mls/hr IV .[id number] [facility] Stop: 04/03/25 12:34 Last Admin: 04/02/25 23:54 Dose: 75 mls/hr Documented By: WILLIAM Morphine Sulfate (Morphine Sulfate 2 Mg/Ml Carp) 2 mg IV Q1H PRN PRN Reason: Moderate Pain (Rating 3,4,5,6) Stop: 04/16/25 23:13 Last Admin: 04/02/25 23:53 Dose: 2 mg Documented By: WILLIAM Discontinued Medications Morphine Sulfate (Morphine Sulfate 2 Mg/Ml Carp) 2 mg IV NOW STA Stop: 04/02/25 22:02 Last Admin: 04/02/25 22:06 Dose: 2 mg Documented By: PRIETO Ondansetron HCl (Ondansetron Inj 2 Mg/Ml 2 Ml Vial) 4 mg IV NOW STA Stop: 04/02/25 23:15 Last Admin: 04/02/25 23:53 Dose: 4 mg Documented By: WILLIAM Medical Decision Making Laboratory Data 04/02/25 23:40 04/02/25 23:40 Lab Results 04/02/25 Range/Units 23:40 WBC 21.48 H (4.8-10.8) K/ul RBC 5.05 (4.20-5.40) M/uL Hgb 14.4 (12.0-16.0) g/dl Hct 41.8 (37.0-47.0) % MCV 82.8 (80.0-100.0) fL MCH 28.5 (25.0-34.0) pg MCHC 34.4 (32.0-36.0) g/dL RDW Std Deviation 40.3 (36.4-46.3) fL RDW Coeff of Julio Cesar 13.2 (11.5-14.5) % Plt Count 287 (130-400) K/uL MPV 9.1 L (9.4-12.4) fL Immature Gran % (Auto) 0.7 % Neut % (Auto) 87.6 % Lymph % (Auto) 7.3 % [place] % (Auto) 4.2 % Eos % (Auto) 0.1 % Baso % (Auto) 0.1 % Neut # (Auto) 18.79 H (1.40-6.50) K/uL Lymph # (Auto) 1.57 (1.20-3.40) K/uL [place] # (Auto) 0.91 H (0.11-0.59) K/uL Eos # (Auto) 0.03 (0.00-0.50) K/uL Baso # (Auto) 0.03 (0.00-0.20) K/uL Immature Gran # (Auto) 0.15 (0.01-0.20) K/uL Imaging Data Attestation: I personally reviewed and interpreted this imaging study as follows: My Impression: Left hip x-ray: Left hip fracture Left knee x-ray: No acute fracture or dislocation Radiologist's Impression: Hip/Pelvis X-Ray 04/02/25 22:02 Exam(s): XR HIP + PELVIS, 1 view EXAM: XR Left Hip With Pelvis, 3 Views CLINICAL HISTORY: Reason for exam: fall. TECHNIQUE: Three views of the left hip with pelvis. COMPARISON: No relevant prior studies available. FINDINGS: Bones/joints: Nondisplaced intertrochanteric fracture of the left femur, with mild displacement of the lesser trochanter fragment. No other fracture. No dislocation. Soft tissues: Unremarkable. IMPRESSION: 1. Nondisplaced intertrochanteric fracture of the LEFT femur, with mild displacement of the lesser trochanter fragment. Electronically signed by: Johanne Valerio M.D. 04/02/25 23:07 PM Knee X-Ray 04/02/25 22:02 Exam(s): XR LEFT KNEE, 3 views EXAM: XR Left Knee, 3 Views CLINICAL HISTORY: Reason for exam: fall. TECHNIQUE: Three views of the left knee. Significant limited evaluation due to patient positioning, the knee is bent. COMPARISON: Left knee x-ray 05/15/2024. FINDINGS: Bones/joints: Limited evaluation of the medial and lateral joint space due to patient positioning. Mild patellofemoral joint osteoarthritis. No definite acute fracture. No dislocation. Soft tissues: Unremarkable. No joint effusion. IMPRESSION: 1. No joint effusion or definite acute bony abnormality. 2. Limited evaluation due to patient positioning. Electronically signed by: Johanne Valerio M.D. 04/02/25 23:14 PM ECG Data Attestation: I personally reviewed and interpreted this ECG as follows: Rate (beats per minute): 108 Rhythm: + sinus tachycardia ECG Intervals/blocks: + Normal DE and + Normal QT-c ECG ST segments: + Normal ST segments Additional Comments: QRS 74 MDM Narrative 2157: The patient was evaluated in room A9. A complete history and physical exam was performed Cardiac monitoring: An order was placed for continuous cardiac monitoring. The monitor shows a rate of 100 with sinus rhythm interpreted by me 2315: Vital signs stable. Patient has left-sided hip fracture. Patient will be admitted to the [facility] hospitalist team with orthopedics on consult. Impression & Plan Closed hip fracture Discharge Plan Visit Data Chief Complaint: Hip Pain Stated Complaint: GLF, L Hip Pain ED Provider: Tera Borden Discharge Problem: Closed hip fracture Patient Disposition: Admitted As Inpatient Condition: Fair Forms Stand Alone Forms: My [facility] [employer] Prescriptions Prescriptions: No Action No Known Home Medications oxycodone-acetaminophen [Endocet] 5-325 mg tablet 2 tab PO Q6H PRN (Reason: pain) Qty: 30 0RF Referrals Referrals: Zoila Mendosa [Primary Care Provider] - Discharge Problem: Closed hip fracture Qualifiers: Encounter type: initial encounter Laterality: left Qualified Code(s): S72.002A - Fracture of unspecified part of neck of left femur, initial encounter for closed fracture
[2025-04-03] LABS: Hematocrit (blood only) 41.8 % (37.0-47.0); Hemoglobin 14.4 g/dl (12.0-16.0); Immature Granulocytes # (auto) 0.15 K/uL (0.01-0.20); Immature Granulocytes % (auto) 0.7 %; Mean Corpuscular Hemoglobin 28.5 pg (25.0-34.0); Mean Corpuscular Volume 82.8 fL (80.0-100.0); Platelet Count 287 K/uL (130-400); RDW Standard Deviation 40.3 fL (36.4-46.3); Red Blood Count 5.05 M/uL (4.20-5.40); White Blood Count 21.48 K/ul (4.8-10.8)
[2025-04-03 00:18] LABS: Alanine Aminotransferase 11.0 U/L (7-52); Albumin Globulin Ratio 1.0 (0.9-2); Alkaline Phosphatase 55.0 U/L (34-104); Anion Gap 5.0 (3-11); Bilirubin,Total 0.5 mg/dl (0.2-1.0); Blood Urea Nitrogen 19.0 mg/dl (6-23); Calcium 9.5 mg/dl (8.6-10.3); Carbon Dioxide 29.0 mmol/L (21-32); Chloride 104.0 mmol/L (98-107); Creatinine Clr Calc Pharmacy 111.5 ml/min; Globulin 3.7 gm/dl (2.5-4.0); Glucose 219.0 mg/dl (70-99(Fasting)); Potassium 4.1 mmol/L (3.5-5.1); Sodium 138.0 mmol/L (136-145); Total Protein 7.4 gm/dl (6.0-8.3)
[2025-04-03 00:33] LABS: INR 1.0 (0.9-1.1); Partial Thromboplastin Time 26 Seconds (21-31); Prothrombin Time 10.7 Seconds (9.0-12.0)
[2025-04-03 00:34] LABS: Appearance Urine Cloudy (Clear); Bacteria Urine Automated 4+ (None Seen); Glucose Urine UA Negative (Negative); WBC Urine Automated 21-50 /hpf (0-5)
--- NOTE | 2025-04-03 01:00 | History & Physical Report ---
Date of Service April 03, 2025 Assessment & Plan (1) Closed hip fracture: (2) HTN (hypertension): (3) HLD (hyperlipidemia): (4) T2DM (type 2 diabetes mellitus): (5) Leukocytosis: Plan 54 yo female PMHx HTN, HLD, T2DM not on insulin, severe bilateral osteoarthritis of knees admitted after fall and found to have L hip fracture. #L Hip Fracture Pain control with Tylenol and Dilaudid Orthopedics consulted for ongoing management Made NPO at midnight Continue gentle IVF while NPO #Leukocytosis Unclear significance - no obvious source of infection, no recent steroid use VSS stable May be secondary to demargination in the setting of fracture Continue to follow CBC #T2DM Not on insulin Hold Mounjaro ISS A1c ordered with AM labs #HTN Well controlled Continue lisinopril #HLD Continue pravastatin FENGI: NPO, continue gentle fluids Code status: full code DVT prophylaxis: SCDs - defer chemical prophylaxis in anticipation of surgical intervention Disposition: med/surg History of Present Illness Primary Care Provider: Zoila Mendosa 54 yo female PMHx HTN, HLD, T2DM not on insulin, severe bilateral osteoarthritis of knees admitted after fall and found to have L hip fracture. 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 She reports that this is not uncommon due to her severe osteoarthritis. She fell on to her left hip and immediately felt pain and was unable to stand back up. She denies any recent illness, fevers, chills, chest pain, shortness of breath, N/V, changes in bowel or bladder habits or urinary symptoms. ED Course: Pelvis/Hip XR: L-nondisplaced intertrochanteric femur fracture with mild displacement of lesser trochanteric fragment L Knee XR: negative for fracture Labs reveal leukocytosis, otherwise WNL Rec'd Zofran x1, 2mg morphine x2, started on NSS at 75cc/hr Allergies Allergy/AdvReac Type Severity Reaction Status Date / Time No Known Allergies Allergy Unknown Verified 02/08/19 04:46 Home Medications Medication Instructions Recorded Confirmed Type No Known Home Medications 02/08/19 02/08/19 History oxycodone-acetaminophen 5 mg-325 2 tab PO Q6H PRN pain #30 tabs 02/09/19 Rx mg tablet (Endocet) Past Med/Surg History Problem List (Updated 04/03/25 @ 02:22 by Tomas Batista DO) Leukocytosis T2DM (type 2 diabetes mellitus) HLD (hyperlipidemia) HTN (hypertension) Closed hip fracture (Acute) Incarcerated umbilical hernia Small bowel obstruction (Acute) Hx of cholecystectomy Cholelithiasis S/P cholecystectomy Encounter for pre-operative examination Abdominal pain (Acute 06/23/13) Anemia (Acute) Fibroid (bleeding) (uterine) (Acute 06/26/13) Fibroid tumor (Chronic) Anemia (Acute) Abnormal uterine bleeding (Acute) Menorrhagia (Acute 07/18/13) Complex atypical endometrial hyperplasia (Acute 07/18/13) Wound dehiscence (Acute) Nausea vomiting and diarrhea (Acute) Urinary tract infection (Acute) Medical History (Updated 04/03/25 @ 02:22 by Tomas Batista DO) Morbid obesity Incisional hernia History of uterine cancer 5 years ago, s/p partial hyster Surgical History History of colonoscopy History of section 4 History of dilatation and curettage History of hysterectomy PARTIAL Social History Smoking Status: Never smoker Cigarettes Per Day: 0; Second Hand Exposure: No; Do You Dip or Chew Tobacco: No; Hx Alcohol Use: No Hx Substance Use: No Preferred Language: Polish Communication Ability: Effective Oracle Specialist Required: No Beliefs That Will Affect Care: None Current Living Situation: Spouse Feels Safe at Home: Yes Assistive Devices: None Review of Systems Review of Systems: reviewed, per HPI Physical Exam Physical Exam: Constitutional: well-appearing, no acute distress HEENT: NCAT, no conjunctival injection CV: regular rhythm, no murmur appreciated, extremities well-perfused, no LE edema Resp: CTABL, no wheezes/rales/rhonchi appreciated, no increased work of breathing GI: soft, nondistended, nontender, BS normoactive MSK: L extremity shortened and internally rotated, elevated behind knee with pillow Skin: warm, dry, no rash appreciated Neuro: alert, oriented, no focal neurologic deficit appreciated Results & Data Results & Data Vital Signs (Past 12 Hours) Vital Signs Temp Pulse Resp BP Pulse Ox O2 Del Method 04/02/25 23:24 102 H 18 125/87 97 08/21/25 23:15 103 H 12 100/80 97 04/02/25 21:58 36.6 C 102 H 20 107/82 95 Room Air 04/02/25 21:56 101 H Code Status & VTE Plan VTE Prophylaxis Plan VTE Prophylaxis will be ordered: Yes Resident Activity Tracking Resident Involvement: Resident Care Provided Care Provided: Adult Hospital Medicine (1) Closed hip fracture Encounter type: initial encounter Laterality: left Qualified Code(s): S72.002A - Fracture of unspecified part of neck of left femur, initial encounter for closed fracture
[2025-04-03] MEDS: HYDROmorphone INJ 0.5 MG/0.5 ML SYR IV PRN (01:01)
[2025-04-03] MEDS ORDERED: GLUCAGON FOR INJ 1 MG VIAL SQ PRN (01:34)
[2025-04-03] MEDS ORDERED: GLUCOSE 10 TAB/TUBE PO PRN (01:34)
[2025-04-03] MEDS ORDERED: CARBOHYDRATES FOR HYPOGLYCEMIA PO PRN (01:34)
[2025-04-03] MEDS ORDERED: DEXTROSE 50% 50 ML SYRINGE IV PRN (01:34)
[2025-04-03] MEDS ORDERED: GLUCOSE 40% GEL 15 GM TUBE PO PRN (01:34)
--- NOTE | 2025-04-03 01:55 | XRay Report ---
EXAM: XR chest 1V portable CLINICAL HISTORY: Pre-operative. TECHNIQUE: An X-ray image of the chest is obtained in AP projection. COMPARISON: ompared to the previous study dated 01/03/2019. FINDINGS: Pulmonary Parenchyma: Lungs are clear bilaterally. No evidence of consolidation, collapse, or focal opacities. No pulmonary nodules are identified. No evidence of pleural effusion or pleural thickening. Heart and Mediastinum: Mild cardiomegaly. No mediastinal widening or masses. No hilar or mediastinal lymphadenopathy. Bony Thorax: Bony thorax appears intact without fractures or deformities. An ECG lead was seen Soft Tissues: Soft tissues overlying the chest wall are unremarkable. IMPRESSION: 1. No acute cardiopulmonary abnormalities are identified. 2. Mild cardiomegaly. stable. Electronically signed by Jermain Betancourt 04-03-2025 01:54 AM
[2025-04-03] MEDS: INSULIN ASPART PER UNIT CHARGE SC SCH ×2 (02:32→20:25)
[2025-04-03] MEDS: HYDROmorphone INJ 1 MG/ML SYRINGE IV PRN (04:03)
[2025-04-03 07:27] LABS: Hemoglobin A1C 6.3 % (4.5-5.6)
--- NOTE | 2025-04-03 08:16 | Orthopedic Consultation ---
Date of Service April 03, 2025 Assessment & Plan (1) Fracture, intertrochanteric, left femur: * Case/imaging reviewed and discussed with Dr Lane * Recommend IM femoral nail placement tentative OR today * Disposition: TBD * Daily treatment: Physical Therapy/ Occupational Therapy per protocol * Weight bearing status: non-weight bearing pre-op * Pain control * Remainder care per primary team * History of Present Illness Reason for Consultation: left intertrochanteric femur fracture . Requesting Physician: . Attending Physician: Brayden Solis MD .Patient is a 54 y/o female with left intertrochanteric femur fracture. PMH including HTN, HLD, T2DM not on insulin, severe bilateral osteoarthritis of knee. Presents to hospital with left intertrochanteric femur fracture. Current workup including x-rays pelvis/left hip with revealed fracture. Orthopedics consulted for management recommendations. At time of exam patient noted discomfort of left hip and limited mobility. Allergies Allergy/AdvReac Type Severity Reaction Status Date / Time No Known Allergies Allergy Unknown Verified 02/08/19 04:46 Home Medications Medication Instructions Recorded Confirmed Type No Known Home Medications 02/08/19 02/08/19 History oxycodone-acetaminophen 5 mg-325 2 tab PO Q6H PRN pain #30 tabs 02/09/19 Rx mg tablet (Endocet) Past Med/Surg History Problem List Fracture, intertrochanteric, left femur Leukocytosis T2DM (type 2 diabetes mellitus) HLD (hyperlipidemia) HTN (hypertension) Closed hip fracture (Acute) Incarcerated umbilical hernia Small bowel obstruction (Acute) Hx of cholecystectomy Cholelithiasis S/P cholecystectomy Encounter for pre-operative examination Abdominal pain (Acute 06/23/13) Anemia (Acute) Fibroid (bleeding) (uterine) (Acute 06/26/13) Fibroid tumor (Chronic) Anemia (Acute) Abnormal uterine bleeding (Acute) Menorrhagia (Acute 07/18/13) Complex atypical endometrial hyperplasia (Acute 07/18/13) Wound dehiscence (Acute) Nausea vomiting and diarrhea (Acute) Urinary tract infection (Acute) Medical History Morbid obesity Incisional hernia History of uterine cancer 5 years ago, s/p partial hyster Surgical History History of colonoscopy History of section 4 History of dilatation and curettage History of hysterectomy PARTIAL Social History Smoking Status: Never smoker Cigarettes Per Day: 0; Second Hand Exposure: No; Do You Dip or Chew Tobacco: No; Tobacco Cessation Education Requested by Patient: No Hx Alcohol Use: No Hx Substance Use: No Preferred Language: Polish Communication Ability: Effective Hog Confinement System Manager Required: No Beliefs That Will Affect Care: None Current Living Situation: Spouse and Family Current Living Situation Comment: Lives with and 2 sons Other Information That Helps Us Care for You: No Feels Safe at Home: Yes Safety Concerns: Feels Safe At This Time Assistive Devices: Cane and Walker Assistive Devices Comment: Uses a cane and walker at home to get around d/t arthritis Review of Systems All systems reviewed & are unremarkable except as noted in HPI & below. Physical Exam * General: Alert and oriented, no acute distress * Constitutional: well-developed, well-nourished. * Respiratory: Normal respiratory effort, no distress * Gastrointestinal: No tenderness to palpation, no rigidity or guarding. * Skin: No rash or lesion. * Neurologic: Grossly normal * Musculoskeletal: Left hip with diffuse tenderness. Irritable left hip. Left lower extremity shorten and internally rotated. Neurovascularly intact. Results & Data Results & Data Laboratory Results . Laboratory Results - last 24 hr 04/02/25 04/03/25 04/03/25 23:40 00:00 02:26 WBC 21.48 H RBC 5.05 Hgb 14.4 Hct 41.8 MCV 82.8 MCH 28.5 MCHC 34.4 RDW Std Deviation 40.3 RDW Coeff of Julio Cesar 13.2 Plt Count 287 MPV 9.1 L Immature Gran % (Auto) 0.7 Neut % (Auto) 87.6 Lymph % (Auto) 7.3 [place] % (Auto) 4.2 Eos % (Auto) 0.1 Baso % (Auto) 0.1 Neut # (Auto) 18.79 H Lymph # (Auto) 1.57 [place] # (Auto) 0.91 H Eos # (Auto) 0.03 Baso # (Auto) 0.03 Immature Gran # (Auto) 0.15 PT 10.7 INR 1.0 APTT 26 PTT Ratio 1.0 Sodium 138 Potassium 4.1 Chloride 104 Carbon Dioxide 29 Anion Gap 5 BUN 19 Creatinine 0.62 Est Cr Clr Drug Dosing 111.5 eGFR 104.45 BUN/Creatinine Ratio 30.6 H Glucose 219 H POC Glucose 218 H Estimat Average Glucose 134 Hemoglobin A1c 6.3 H Calcium 9.5 Total Bilirubin 0.5 AST 12 L ALT 11 Alkaline Phosphatase 55 Total Protein 7.4 Albumin 3.7 Globulin 3.7 Albumin/Globulin Ratio 1.0 Urine Color Dark Yellow Urine Appearance Cloudy A Urine pH 5.0 Ur Specific [place] 1.036 H Urine Protein Trace H Urine Glucose (UA) Negative Urine Ketones 1+ H Urine Blood Negative Urine Nitrite Positive A Urine Bilirubin Negative Urine Urobilinogen Negative Ur Leukocyte Esterase 1+ H Urine WBC (Auto) 21-50 H Urine RBC (Auto) 6-10 H U Hyaline Cast (Auto) 11-20 H U Epithel Cells (Auto) 11-20 H Urine Bacteria (Auto) 4+ H Calcium Oxalate Crystal Present A Urine Mucus Present A Urine Comment 04/03/25 06:17 WBC RBC Hgb Hct MCV MCH MCHC RDW Std Deviation RDW Coeff of Julio Cesar Plt Count MPV Immature Gran % (Auto) Neut % (Auto) Lymph % (Auto) [place] % (Auto) Eos % (Auto) Baso % (Auto) Neut # (Auto) Lymph # (Auto) [place] # (Auto) Eos # (Auto) Baso # (Auto) Immature Gran # (Auto) PT INR APTT PTT Ratio Sodium Potassium Chloride Carbon Dioxide Anion Gap BUN Creatinine Est Cr Clr Drug Dosing eGFR BUN/Creatinine Ratio Glucose POC Glucose 175 H Estimat Average Glucose Hemoglobin A1c Calcium Total Bilirubin AST ALT Alkaline Phosphatase Total Protein Albumin Globulin Albumin/Globulin Ratio Urine Color Urine Appearance Urine pH Ur Specific [place] Urine Protein Urine Glucose (UA) Urine Ketones Urine Blood Urine Nitrite Urine Bilirubin Urine Urobilinogen Ur Leukocyte Esterase Urine WBC (Auto) Urine RBC (Auto) U Hyaline Cast (Auto) U Epithel Cells (Auto) Urine Bacteria (Auto) Calcium Oxalate Crystal Urine Mucus Urine Comment Diagnostic Findings Hip/Pelvis X-Ray 04/02/25 22:02 Exam(s): XR HIP + PELVIS, 1 view EXAM: XR Left Hip With Pelvis, 3 Views CLINICAL HISTORY: Reason for exam: fall. TECHNIQUE: Three views of the left hip with pelvis. COMPARISON: No relevant prior studies available. FINDINGS: Bones/joints: Nondisplaced intertrochanteric fracture of the left femur, with mild displacement of the lesser trochanter fragment. No other fracture. No dislocation. Soft tissues: Unremarkable. IMPRESSION: 1. Nondisplaced intertrochanteric fracture of the LEFT femur, with mild displacement of the lesser trochanter fragment. Electronically signed by: Johanne Valerio M.D. 04/02/25 23:07 PM Knee X-Ray 04/02/25 22:02 Exam(s): XR LEFT KNEE, 3 views EXAM: XR Left Knee, 3 Views CLINICAL HISTORY: Reason for exam: fall. TECHNIQUE: Three views of the left knee. Significant limited evaluation due to patient positioning, the knee is bent. COMPARISON: Left knee x-ray 05/15/2024. FINDINGS: Bones/joints: Limited evaluation of the medial and lateral joint space due to patient positioning. Mild patellofemoral joint osteoarthritis. No definite acute fracture. No dislocation. Soft tissues: Unremarkable. No joint effusion. IMPRESSION: 1. No joint effusion or definite acute bony abnormality. 2. Limited evaluation due to patient positioning. Electronically signed by: Johanne Valerio M.D. 04/02/25 23:14 PM Chest X-Ray 04/02/25 23:16 EXAM: XR chest 1V portable CLINICAL HISTORY: Pre-operative. TECHNIQUE: An X-ray image of the chest is obtained in AP projection. COMPARISON: ompared to the previous study dated 01/03/2019. FINDINGS: Pulmonary Parenchyma: Lungs are clear bilaterally. No evidence of consolidation, collapse, or focal opacities. No pulmonary nodules are identified. No evidence of pleural effusion or pleural thickening. Heart and Mediastinum: Mild cardiomegaly. No mediastinal widening or masses. No hilar or mediastinal lymphadenopathy. Bony Thorax: Bony thorax appears intact without fractures or deformities. An ECG lead was seen Soft Tissues: Soft tissues overlying the chest wall are unremarkable. IMPRESSION: 1. No acute cardiopulmonary abnormalities are identified. 2. Mild cardiomegaly. stable. Electronically signed by Jermain Betancourt 04-03-2025 01:54 AM . PG Care Time/CCT Total # of Minutes Spent Total Time Spent with Patient: Total time spent is greater than 50% in coordination of care (as documented) at patient's floor/unit and/or counseling patient: Coding Level of Care Code 23518 IN/OBS CONSULT LVL 4,60M Diagnoses Fracture, intertrochanteric, left femur S72.142N
[2025-04-03] MEDS: ONDANSETRON INJ 2 MG/ML 2 ML VIAL IV PRN (08:51)
[2025-04-03] MEDS: cefTRIAXone SODIUM 2,000 MG/50 ML BAG IV SCH (09:04)
[2025-04-03] MEDS ORDERED: TRANEXAMIC ACID / 0.7% NACL 1,000 MG/100 ML BAG IV ONE ×2 (11:18)
[2025-04-03] MEDS: diphenhydrAMINE 50 MG/ML VIAL IV PRN (11:44)
--- NOTE | 2025-04-03 12:23 | Hospitalist Progress Note ---
Date of Service April 03, 2025 Assessment & Plan (1) Closed hip fracture: (2) HTN (hypertension): (3) HLD (hyperlipidemia): (4) T2DM (type 2 diabetes mellitus): (5) Leukocytosis: Plan 54 yo female PMHx HTN, HLD, T2DM not on insulin, severe bilateral osteoarthritis of knees admitted after fall and found to have L hip fracture. #L Hip Fracture Left hip XR: nondisplaced intertrochanteric fracture of L femur w/ mild displacement of lesser trochanter fragment. Ortho consulted --> to go to OR for repair today, 04/[address] Pain control w/ scheduled Tylenol & Dilaudid prn for breakthrough pain. Benadryl prn q6h added in setting of pruritus secondary to narcotic use. IVF while NPO PT/OT to be consulted following surgery AM vitmain D level #UTI Leukocytosis on admission 21.48 Urinalysis + for infection, UC pending Continue IV Rocephin --> tailor as necessary based on culture results. #T2DM A1c 6.3% Hold Mounjaro ISS - adjust as necessary #HTN Well controlled Continue lisinopril #HLD Continue pravastatin Code status: full code DVT prophylaxis: SCDs - defer chemical prophylaxis in anticipation of surgical intervention Admission and Anticipated Discharge Date Admission Date: April 03, 2025 Supervising Physician Co-Signing Physician Notes the patient was not seen by me. The chart was reviewed. Case discussed with HO Singleton. Agree with assessment and plan Cortes Moran was seen and examined this morning. She was complaining of left hip pain & itching at time of encounter. States she had many narcotics overnight to help control pain & that is when itching began. She denies any urinary complaints. Physical Exam Constitutional: WD/WN, vitals as above Eyes: PERRL, conjunctivae normal, anicteric sclerae Respiratory: normal respiratory effort Skin: no rashes, warm and dry Neurologic: PERRL, EOMI, accommodation nl, no face palsy, no dysarthria Psychiatric: A+Ox3, euthymic affect Results & Data Results & Data Vital Signs (Past 12 Hours) Vital Signs Temp Pulse Resp BP BP Pulse Ox O2 Del Method 04/03/25 09:06 101 H 18 110/69 95 Room Air 04/03/25 07:26 36.7 C 106 H 16 110/75 97 Room Air 04/03/25 01:34 36.8 C 18 131/86 94 Room Air PG Care Time/CCT Total # of Minutes Spent Total Time Spent with Patient: Total time spent is greater than 50% in coordination of care (as documented) at patient's floor/unit and/or counseling patient: Coding Level of Care Code 47838 SUB INP/OBS CARE 235MIN Diagnoses Closed hip fracture S72.002A Encounter type: initial encounter Laterality: left HTN (hypertension) I10 HLD (hyperlipidemia) E78.5 T2DM (type 2 diabetes mellitus) E11.9 Leukocytosis D72.829 (1) Closed hip fracture Encounter type: initial encounter Laterality: left Qualified Code(s): S72.002A - Fracture of unspecified part of neck of left femur, initial encounter for closed fracture
--- NOTE | 2025-04-03 13:55 | Anesthesiology Consultation ---
Date of Service April 03, 2025 Assessment & Plan Chart Review Chart Review: Acceptable Risk for Surgery and Patient NOT seen in Pre Admission Testing Consults Requested none ASA ASA3 History Surgery Operation Date: 04/03/25 09:50 Proposed Procedures p Left Trochanteric Femoral Nail - Bernabe Lane DO Height/Weight Height: 5 ft 4 in Weight: 86.2 kg Allergies Allergy/AdvReac Type Severity Reaction Status Date / Time No Known Allergies Allergy Unknown Verified 02/08/19 04:46 Medications Home Medications Medication Instructions Recorded Confirmed Last Taken No Known Home Medications 02/08/19 02/08/19 Unknown oxycodone-acetaminophen 5 mg-325 2 tab PO Q6H PRN pain #30 tabs 02/09/19 Unknown mg tablet (Endocet) Active Medications Generic Name Dose Route Start Last Admin Trade Name Freq PRN Reason Stop Dose Admin Diphenhydramine HCl 25 mg 04/03/25 11:36 04/03/25 11:44 Diphenhydramine 50 Mg/Ml Vial IV 05/03/25 11:35 25 mg TID PRN Administration Itching Hydromorphone HCl 0.5 mg 04/03/25 00:30 04/03/25 12:23 Hydromorphone Inj 0.5 Mg/0.5 Ml Syr IV 04/17/25 00:29 0.5 mg Q4H PRN Administration Moderate Pain (Scale 4, 5, 6) Hydromorphone HCl 1 mg 04/03/25 00:30 04/03/25 08:07 Hydromorphone Inj 1 Mg/Ml Syringe IV 04/17/25 00:29 1 mg Q4H PRN Administration Severe Pain (Scale 7, 8, 9,10) Ceftriaxone Sodium 2,000 mg in 50 mls @ 100 mls/hr 04/03/25 09:00 04/03/25 09:34 Rocephin IV 04/08/25 08:59 Infused Q24H LAILA Infusion Insulin Aspart 0 units 04/03/25 01:45 04/03/25 13:24 Insulin Aspart Per Unit Charge SC 05/03/25 01:44 Not Given Q6 LAILA Lisinopril 5 mg 04/03/25 09:00 04/03/25 09:07 Lisinopril 5 Mg Tab PO 05/03/25 08:59 5 mg QAM LAILA Administration Ondansetron HCl 4 mg 04/03/25 08:36 04/03/25 08:51 Ondansetron Inj 2 Mg/Ml 2 Ml Vial IV 05/03/25 08:35 4 mg Q4H PRN Administration Nausea Past Medical History Medical History Morbid obesity Incisional hernia History of uterine cancer 5 years ago, s/p partial hyster obese NIDDM HTN HLD Exercise / Class Metabolic Activity II 4-5 Yardwork/Stairs/Walk up hill Past Surgical History Surgical History History of colonoscopy History of section 4 History of dilatation and curettage History of hysterectomy PARTIAL Past Anesthesia History No Hx of Anesthesia Complications and No Family Hx of Anesthesia Complications History of PONV No Hx of PONV and No Hx of Motion Sickness Social History Smoking Status: Never smoker Smoking cigarettes per day: 0 Do You Dip or Chew Tobacco: No Hx Alcohol Use: No Hx Substance Use: No substance use type: does not use Physical Exam Vital Signs Last Vital Signs Temp 36.7 C 04/03/25 07:26 Pulse 101 H 04/03/25 09:06 Resp 18 04/03/25 09:06 BP 110/69 04/03/25 09:06 Pulse Ox 95 04/03/25 09:06 O2 Del Method Room Air 04/03/25 09:06 Testing Laboratory Results 04/02/25 23:40 04/02/25 23:40 PT 10.7 Seconds (9.0-12.0) 04/02/25 23:40 INR 1.0 (0.9-1.1) 04/02/25 23:40 APTT 26 Seconds (21-31) 04/02/25 23:40 Hemoglobin A1c 6.3 % (4.5-5.6) H 04/02/25 23:40 Urine Color Dark Yellow 04/03/25 00:00 Urine Appearance Cloudy (Clear) A 04/03/25 00:00 Urine pH 5.0 (4.5-7.5) 04/03/25 00:00 Ur Specific [place] 1.036 (1.000-1.030) H 04/03/25 00:00 Urine Protein Trace (Negative) H 04/03/25 00:00 Urine Glucose (UA) Negative (Negative) 04/03/25 00:00 Urine Ketones 1+ (Negative) H 04/03/25 00:00 Urine Nitrite Positive (Negative) A 04/03/25 00:00 Ur Leukocyte Esterase 1+ (Negative) H 04/03/25 00:00 Urine WBC (Auto) 21-50 /hpf (0-5) H 04/03/25 00:00 Urine RBC (Auto) 6-10 /hpf (0-2) H 04/03/25 00:00 U Hyaline Cast (Auto) 11-20 /lpf (0-2) H 04/03/25 00:00 U Epithel Cells (Auto) 11-20 /hpf (0-2) H 04/03/25 00:00 Urine Bacteria (Auto) 4+ (None Seen) H 04/03/25 00:00 04/03/25 04/03/25 04/03/25 11:28 06:17 02:26 POC Glucose 158 H 175 H 218 H Electrocardiogram Date: 04/02/25 Findings: + ST @ (@ 108;? infer. infar t,age ?) Chest X-Ray Date: 04/02/25 Findings: + NAD and + cardiomegaly
[2025-04-03] MEDS: LACTATED RINGER'S 1,000 ML IV SCH (15:05)
--- NOTE | 2025-04-03 15:18 | History & Physical Bridge Note ---
Date of Service April 03, 2025 History & Physical Bridge Note I have examined the patient, reviewed the History & Physical and in the interval since the performance of the History & Physical I have noted the following changes of clinical significance: no changes noted
[2025-04-03] MEDS ORDERED: PROPOFOL IV EMULSION 10 MG/ML 20 ML VIAL IV ONE (16:13)
[2025-04-03] MEDS ORDERED: LIDOCAINE 2% 2 ML VIAL/AMP(20MG/ML) INFIL ONE (16:13)
[2025-04-03] MEDS ORDERED: MIDAZOLAM HCL 1 MG/ML 2ML VIAL ONE (16:13)
[2025-04-03] MEDS ORDERED: ONDANSETRON INJ 2 MG/ML 2 ML VIAL ONE (16:13)
[2025-04-03] MEDS ORDERED: ONDANSETRON INJ 2 MG/ML 2 ML VIAL IV PRN (16:31)
[2025-04-03] MEDS ORDERED: ATROPINE SULFATE 0.1 MG/ML 10ML SYR IV PRN (16:31)
[2025-04-03] MEDS ORDERED: HYDROmorphone INJ 1 MG/ML SYRINGE IV PRN (16:31)
[2025-04-03] MEDS: ROPIVACAINE 0.5% HCL/PF 246 MG, Ketorolac (*for OR use only*) 30 MG, EPINEPHrine 30MG/3... INFIL SCH (17:10)
[2025-04-03] MEDS: TRANEXAMIC ACID / 0.7% NACL 1,000 MG/100 ML BAG IV ONE ×2 (17:42→18:45)
[2025-04-03] MEDS ORDERED: PHENYLEPHRINE 100MCG/ML 5ML SYR ONE (18:17)
[2025-04-03] MEDS ORDERED: SUGAMMADEX SODIUM 200 MG/2 ML VIAL IV ONE (18:29)
[2025-04-03] MEDS: BUPIVACAINE/EPINEPHRINE 0.25% 1:200,000 30 ML VIAL ONE (18:52)
--- NOTE | 2025-04-03 18:53 | Operative Report ---
PG Post Operative Report Pre & Post Diagnosis Operation Date: 04/03/25 09:50 Pre-Op Diagnosis: Fracture, intertrochanteric, left femur Post-Op Diagnosis: Fracture, intertrochanteric, left femur I identified the patient and participated in the time-out.: Yes Procedure Operation Date: 04/03/25 09:50 Actual Procedures p Left Intramedullary Femoral Nail Placement(Left) - Bernabe Lane DO Surgeon Bernabe Lane DO [employer]eral [employer] Otto Thakur PA-C Estimated Blood Loss 50 Findings Consistent with Post-Op Diagnosis Specimens None Description of Procedure On April 03, 2025 anna Moran was brought down from her hospital room to the preoperative holding area. The operation was identified and signed. She was given a preoperative antibiotic. She was taken back to the operative room and given a spinal anesthetic. She was then transferred to a fracture [place] table. The left leg was brought out to traction. The left hip was then prepped and draped in sterile fashion. A timeout was done. The patient and the operative extremity was properly identified. Appropriate reduction was checked under fluoroscopy. A longitudinal incision was made just superior to the greater trochanter. Dissection was taken down through the fascia. A guidepin was placed at the tip of the greater trochanter and advanced into the femoral canal. Appropriate placement was checked on fluoroscopy. Once I was happy with the placement of the guidepin, a 16mm opening reamer was then sent down the canal. A Synthes 10 mm short TFN nail was then impacted into place. Fluoroscopy was used to ensure appropriate placement of the nail. A small incision was made in the lateral thigh and the cannula was advanced for the lateral helical blade. A guidepin was then placed into the center center position of the femoral head. The helical blade measured to be 90 mm. The lateral cortex was drilled and a 90 mm helical blade was then impacted into place. The helical blade was then statically locked. A single distal locking screw was then placed. The nail insertion handle was then removed. Final fluoroscopic images showed anatomic alignment of the fracture and good placement of the hardware. The incisions were then irrigated. The deep fascia was closed with #1 Vicryl. Skin was closed with 2-0 Vicryl and val. She was placed in a soft dressing. She was then taken to the postanesthesia care unit in stable condition. She tolerated the procedure well. Otto Thakur PA-C, was present for the entire procedure. He was critical for patient positioning, prepping, draping, retraction exposure, wound closure and application of sterile dressing. I attest to the content of the Intraoperative Record and any orders documented therein. Any exceptions are noted below. I attest to the content of the Intraoperative Record and any orders documented therein. Any exceptions are noted below.
--- NOTE | 2025-04-03 19:37 | Anesthesiology Progress Note ---
Date of Service April 03, 2025 Anesthesia Post Procedure Vital Signs Vital Signs: Temp Pulse Pulse Pulse Resp BP BP 04/03/25 19:25 96 H 14 120/66 04/03/25 19:15 97 H 20 134/62 04/03/25 19:06 36.1 C L 94 H 18 145/88 H 04/03/25 14:58 36.9 C 102 H 20 147/80 H 04/03/25 09:06 101 H 18 110/69 04/03/25 07:26 36.7 C 106 H 16 110/75 04/03/25 01:34 36.8 C 18 04/02/25 23:24 102 H 18 125/87 04/02/25 23:15 103 H 12 100/80 04/02/25 21:58 36.6 C 102 H 20 107/82 04/02/25 21:56 101 H BP Pulse Ox O2 Del Method O2 Flow Rate 04/03/25 19:25 94 Room Air 04/03/25 19:15 100 Oxymask 5 04/03/25 19:06 100 Oxymask 10 04/03/25 14:58 95 Room Air 04/03/25 09:06 95 Room Air 04/03/25 07:26 97 Room Air 04/03/25 01:34 131/86 94 Room Air 04/02/25 23:24 97 04/02/25 23:15 97 04/02/25 21:58 95 Room Air 04/02/25 21:56 Pain Intensity Left Hip: Pain Intensity: 6 Transfer of Care Handoff Completed per policy Notes Mental Status: alert / awake / arousable Patient Amnestic to Procedure: Yes Nausea / Vomiting: adequately controlled Pain: adequately controlled Airway Patency, RR, SpO2: stable & adequate BP & HR: stable & adequate Hydration State: stable & adequate Anesthetic Complications: no major complications apparent
[2025-04-03] MEDS: ACETAMINOPHEN 1,000 MG/100 ML VIAL IV SCH (20:00)
[2025-04-03] MEDS: PRAVASTATIN SOD 20 MG TAB PO SCH (20:24)
[2025-04-03] MEDS ORDERED: Nursing to Pharmacy Communication SCH (20:30)
--- NOTE | 2025-04-03 21:16 | Electrocardiogram Report ---
Test Reason : Blood Pressure : */* mmHG Vent. Rate : 108 BPM Atrial Rate : 108 BPM P-R Int : 152 ms QRS Dur : 74 ms QT Int : 352 ms P-R-T Axes : -23 -11 -18 degrees QTcB Int : 471 ms Sinus tachycardia Inferior infarct , age undetermined Abnormal ECG When compared with ECG of 03-Jan-2019 11:22, Vent. rate has increased by 37 bpm Inferior infarct is now Present Nonspecific T wave abnormality now evident in Inferior leads Confirmed by Garland Faria ([id number]) on 04/03/2025 9:16:18 PM Referred By: REFERRED SELF Confirmed By: Garland Faria
[2025-04-03] MEDS: ASPIRIN 81 MG ECTAB PO SCH (21:24)
--- NOTE | 2025-04-03 22:13 | XRay Report ---
Exam(s): XR LEFT HIP EXAM: XR Left Hip With Pelvis When Performed, 2 or 3 Views CLINICAL HISTORY: Post-Operative implant position. TECHNIQUE: Two or three views of the left hip with pelvis when performed. COMPARISON: Pelvic radiographs 04/02/2025 FINDINGS: Bones/joints: Interval internal fixation of the left femur traversing a nondisplaced intertrochanteric femoral fracture. The lesser trochanter is avulsed and mildly displaced. No dislocation. Soft tissues: There are surgical changes noted. IMPRESSION: Interval internal fixation of the left femur traversing a nondisplaced intertrochanteric femoral fracture. The lesser trochanter is avulsed and mildly displaced. Electronically signed by: Soledad Roche MD 04/03/25 22:11 PM
[2025-04-04 06:48] LABS: Anion Gap 5.0 (3-11); Blood Urea Nitrogen 13.0 mg/dl (6-23); Calcium 8.4 mg/dl (8.6-10.3); Carbon Dioxide 29.0 mmol/L (21-32); Chloride 103.0 mmol/L (98-107); Creatinine Clr Calc Pharmacy 133.5 ml/min; Glucose 153.0 mg/dl (70-99(Fasting)); Potassium 3.9 mmol/L (3.5-5.1); Sodium 137.0 mmol/L (136-145)
[2025-04-04 06:52] LABS: Hematocrit (blood only) 33.3 % (37.0-47.0); Hemoglobin 11.1 g/dl (12.0-16.0); Immature Granulocytes # (auto) 0.07 K/uL (0.01-0.20); Immature Granulocytes % (auto) 0.5 %; Mean Corpuscular Hemoglobin 27.8 pg (25.0-34.0); Mean Corpuscular Volume 83.5 fL (80.0-100.0); Platelet Count 206 K/uL (130-400); RDW Standard Deviation 41.6 fL (36.4-46.3); Red Blood Count 3.99 M/uL (4.20-5.40); White Blood Count 12.75 K/ul (4.8-10.8)
--- NOTE | 2025-04-04 07:31 | Fluoroscopy Report ---
INTRAOPERATIVE RADIOGRAPHS CLINICAL HISTORY: Open reduction and internal fixation of the left proximal femur. Fluoro time: 62 seconds Ka,r: 20.93 mGy FINDINGS: 3 spot fluoroscopic views of the left hip are correlated with x-rays dated 04/02/2025. Inter trochanteric and intramedullary nails have been placed transfixing an intertrochanteric fracture of t he left proximal femur. Near anatomic alignment is maintained. The orthopedic hardware appears intact . There is persistent medial displacement of the lesser trochanter. IMPRESSION: Intraoperative images from open reduction and internal fixation of a left proximal femora l fracture. Electronically signed by: Fredo Rizzo M.D. 04/04/2025 7:30 AM
--- NOTE | 2025-04-04 07:53 | Orthopedic Progress Note ---
Date of Service April 04, 2025 Assessment & Plan (1) Fracture, intertrochanteric, left femur: Overall she is doing as well as expected. She can be weightbearing as tolerated on her left hip. She will be seen by physical therapy today for ambulation and range of motion exercises. She is on Eliquis 2.5 mg twice a day for 6 weeks for DVT prophylaxis. Full orthopedic discharge instructions were placed in discharge summary. She is orthopedically stable for discharge when medically ready. Cortes Moran was seen and examined at bedside this morning. Overall she is doing fairly well. She is having a little bit of soreness in the hip but that is to b e expected. She has no complaints.. Review of Systems All systems reviewed & are unremarkable except as noted in HPI & below. Physical Exam On physical exam the left hip, the dressings are clean and dry. Her leg is out full extension. She has active movement of her ankle.. Results & Data Results & Data Laboratory Results . Diagnostic Findings Postoperative x-rays of the left hip show the implant to be in good alignment.. PG Care Time/CCT Total # of Minutes Spent Total Time Spent with Patient: Total time spent is greater than 50% in coordination of care (as documented) at patient's floor/unit and/or counseling patient: Coding Level of Care Code 58309 Post Operative Follow-Up Diagnoses Fracture, intertrochanteric, left femur S72.142A
--- NOTE | 2025-04-04 12:13 | Hospitalist Progress Note ---
Date of Service April 04, 2025 Assessment & Plan (1) Closed hip fracture: (2) HTN (hypertension): (3) HLD (hyperlipidemia): (4) T2DM (type 2 diabetes mellitus): (5) Leukocytosis: Plan 54 yo female PMHx HTN, HLD, T2DM not on insulin, severe bilateral osteoarthritis of knees admitted after fall and found to have L hip fracture. #L Hip Fracture Left hip XR: nondisplaced intertrochanteric fracture of L femur w/ mild displacement of lesser trochanter fragment. Ortho consulted --> s/p left hip repair w/ Dr. Lane 04/03. - weight bear as tolerated. Eliquis 2.5mg BID for DVT prophylaxis. Was cleared for dc from ortho standpoint. Pain control w/ scheduled Tylenol & Oxycodone prn for breakthrough pain. Benadryl prn q6h added in setting of pruritus secondary to narcotic use. Vitamin D level low at 9.8 --> started on supplementation. PT/OT --> recommending rehab at this time, CM following. #UTI Leukocytosis on admission 21.48 now downtrending to 12.75 Urinalysis + for infection, UC consistent w/ E. Coli Continue IV Rocephin, sensitivities reviewed #T2DM A1c 6.3% Hold Mounjaro ISS - adjust as necessary #HTN Well controlled Continue lisinopril #HLD Continue pravastatin Code status: full code DVT prophylaxis: Eliquis 2.5mg BID (rec by ortho) Updated family at bedside 04/04. Admission and Anticipated Discharge Date Admission Date: April 03, 2025 Supervising Physician Co-Signing Physician Notes The patient was not seen by me. The chart was reviewed. Case discussed with HO Singleton. Agree with assessment and plan Subjective Luisa seen & examined this afternoon with her family at bedside. She states that her pain is about the same as yesterday prior to her surgery. Discharge planning was discussed in terms of rehab vs home w/ home health. She is still having itching secondary to narcotic use. Physical Exam Constitutional: WD/WN, vitals as above Eyes: PERRL, conjunctivae normal, anicteric sclerae Respiratory: normal respiratory effort Skin: no rashes, warm and dry Neurologic: PERRL, EOMI, accommodation nl, no face palsy, no dysarthria Psychiatric: A+Ox3, euthymic affect Results & Data Results & Data Vital Signs (Past 12 Hours) Vital Signs Temp Pulse Resp BP Pulse Ox O2 Del Method O2 Flow Rate 04/04/25 07:33 36.9 C 97 H 18 114/73 95 Room Air 04/04/25 03:00 36.6 C 108 H 18 94/65 L 94 Nasal Cannula 2 PG Care Time/CCT Total # of Minutes Spent Total Time Spent with Patient: Total time spent is greater than 50% in coordination of care (as documented) at patient's floor/unit and/or counseling patient: Coding Level of Care Code 85016 SUB INP/OBS CARE 2/35MIN Diagnoses Closed hip fracture S72.002A Encounter type: initial encounter Laterality: left HTN (hypertension) I10 HLD (hyperlipidemia) E78.5 T2DM (type 2 diabetes mellitus) E11.9 Leukocytosis D72.829 (1) Closed hip fracture Encounter type: initial encounter Laterality: left Qualified Code(s): S72.002A - Fracture of unspecified part of neck of left femur, initial encounter for closed fracture
[2025-04-04] MEDS: ACETAMINOPHEN 500 MG TAB PO SCH (15:17)
[2025-04-04] MEDS: APIXABAN 2.5 MG TAB PO SCH (20:43)
--- NOTE | 2025-04-05 08:02 | Orthopedic Progress Note ---
Date of Service April 05, 2025 Assessment & Plan (1) Fracture, intertrochanteric, left femur: * Continue Current Treatment * Weight bearing status: WBAT * Daily treatment: Physical Therapy/ Occupational Therapy per protocol * Dressing change PRN * Pain control * DVT prophylaxis, Eliquis 2.5 mg BID * Disposition: TBD * F/u office 2-3 weeks for staple removal * Remainder care per primary team * Stable for discharge from ortho standpoint, further planning per primary team Subjective . Active Problems: S/p left TFN POD 2 54 y/o female s/p left TFN. Doing well overall, pain managed and improved function. Denies fever/chills, chest pain/SOB, nausea/vomiting. Otherwise no complaints. Review of Systems All systems reviewed & are unremarkable except as noted in HPI & below. Physical Exam * General: Alert and oriented, no acute distress * Constitutional: well-developed, well-nourished. * Respiratory: Normal respiratory effort, no distress * Gastrointestinal: No tenderness to palpation, no rigidity or guarding. * Skin: No rash or lesion. * Neurologic: Grossly normal * Musculoskeletal: left hip surgical dressing CDI, not removed for exam. Otherwise no obvious deformity or overlying skin changes. Diffuse TTP proximal thigh and hip region. Otherwise no specific tenderness of distal thigh, lower leg, foot/ankle. AROM hip flexion intact. AROM foot/ankle intact. Sensation intact plantar/dorsal foot. Brisk capillary refill. Results & Data Results & Data Laboratory Results . Diagnostic Findings . PG Care Time/CCT Total # of Minutes Spent Total Time Spent with Patient: Total time spent is greater than 50% in coordination of care (as documented) at patient's floor/unit and/or counseling patient: Coding Level of Care Code 89792 Post Operative Follow-Up Diagnoses Fracture, intertrochanteric, left femur S72.142A
[2025-04-05] MEDS: CHOLECALCIFEROL 125 MCG (5,000 UNITS) TAB PO SCH (08:52)
--- NOTE | 2025-04-05 12:10 | Hospitalist Progress Note ---
Date of Service April 05, 2025 Assessment & Plan (1) Closed hip fracture: (2) HTN (hypertension): (3) HLD (hyperlipidemia): (4) T2DM (type 2 diabetes mellitus): (5) Leukocytosis: Plan 54 yo female PMHx HTN, HLD, T2DM not on insulin, severe bilateral osteoarthritis of knees admitted after fall and found to have L hip fracture. #L Hip Fracture Left hip XR: nondisplaced intertrochanteric fracture of L femur w/ mild displacement of lesser trochanter fragment. Ortho consulted --> s/p left hip repair w/ Dr. Lane 04/03. - weight bear as tolerated. Eliquis 2.5mg BID for DVT prophylaxis. Was cleared for dc from ortho standpoint. Pain control w/ scheduled Tylenol & Oxycodone prn for breakthrough pain. Benadryl prn q6h added in setting of pruritus secondary to narcotic use. Vitamin D level low at 9.8 --> started on supplementation. PT/OT --> recommending rehab at this time, CM following. #UTI Leukocytosis on admission 21.48 now downtrending to 12.75 Urinalysis + for infection, UC consistent w/ E. Coli Continue IV Rocephin through 04/08, sensitivities reviewed #T2DM A1c 6.3% Hold Mounjaro ISS - adjust as necessary #HTN Well controlled Continue lisinopril #HLD Continue pravastatin Code status: full code DVT prophylaxis: Eliquis 2.5mg BID (rec by ortho) Admission and Anticipated Discharge Date Admission Date: April 03, 2025 Supervising Physician Co-Signing Physician Notes The patient was not seen by me. The chart was reviewed. Case discussed with HO Singleton. Agree with assessment and plan Subjective Luisa seen and examined this morning. She reports pain in her left hip but denies any additional complaints. She was sitting on the edge of the bed at time of encounter. She reports she was able to side step today with therapy. Physical Exam Constitutional: WD/WN, vitals as above Eyes: PERRL, conjunctivae normal, anicteric sclerae Respiratory: normal respiratory effort, lungs clear to auscultation Cardiovascular: RRR, no murmur, no edema Skin: no rashes, warm and dry Neurologic: PERRL, EOMI, accommodation nl, no face palsy, no dysarthria Psychiatric: A+Ox3, euthymic affect Results & Data Results & Data Vital Signs (Past 12 Hours) Vital Signs Temp Pulse Resp BP Pulse Ox O2 Del Method 04/05/25 07:34 36.7 C 102 H 18 115/76 96 Room Air PG Care Time/CCT Total # of Minutes Spent Total Time Spent with Patient: Total time spent is greater than 50% in coordination of care (as documented) at patient's floor/unit and/or counseling patient: Coding Level of Care Code 80465 SUB INP/OBS CARE 2/35MIN Diagnoses Closed hip fracture S72.002A Encounter type: initial encounter Laterality: left HTN (hypertension) I10 HLD (hyperlipidemia) E78.5 T2DM (type 2 diabetes mellitus) E11.9 Leukocytosis D72.829 (1) Closed hip fracture Encounter type: initial encounter Laterality: left Qualified Code(s): S72.002A - Fracture of unspecified part of neck of left femur, initial encounter for closed fracture
[2025-04-06 07:31] VITALS: RESP 14
--- NOTE | 2025-04-06 10:17 | Orthopedic Progress Note ---
Date of Service April 06, 2025 Assessment & Plan (1) Fracture, intertrochanteric, left femur: * Continue Current Treatment * Disposition: rehab * Daily treatment: Physical Therapy/ Occupational Therapy per protocol * Weight bearing status: as tolerated * Continue to monitor for ABLA * Pain control * DVT prophylaxis, ASA * Office/hospital f/u 2 weeks for progress check and staple/suture removal * Remainder care per primary team * Stable for discharge from ortho standpoint, further planning per primary team Subjective Active Problems: S/p left IM femoral nail placement POD 3 54 y/o female s/p left IM femoral nail placement on 04/03/[address]. Doing well overall, pain managed and improved function. Pt has been able to stand and side step but walking forward has been slow. Denies fever/chills, chest pain/SOB, nausea/vomiting. Otherwise no complaints. . Review of Systems All systems reviewed & are unremarkable except as noted in HPI & below. Physical Exam * General: Alert and oriented, no acute distress * Constitutional: well-developed, well-nourished. * Respiratory: Normal respiratory effort, no distress * Gastrointestinal: No tenderness to palpation, no rigidity or guarding. * Skin: No rash or lesion. * Neurologic: Grossly normal * Musculoskeletal: Left hip surgical dressing clean, dry and in place, not removed for exam. Otherwise no obvious deformity or overlying skin changes. Diffuse TTP proximal thigh and hip region. Otherwise no specific tenderness of distal thigh, lower leg, foot/ankle. AROM hip flexion intact. AROM foot/ankle intact. Sensation intact plantar/dorsal foot. Brisk capillary refill. . Results & Data Results & Data Laboratory Results Laboratory Results - last 24 hr 04/05/25 04/05/25 04/05/25 11:24 16:40 20:05 POC Glucose 180 H 137 H 147 H 04/06/25 07:29 POC Glucose 132 H . Diagnostic Findings . PG Care Time/CCT Total # of Minutes Spent Total Time Spent with Patient: Total time spent is greater than 50% in coordination of care (as documented) at patient's floor/unit and/or counseling patient: Coding Level of Care Code 45175 Post Operative Follow-Up Diagnoses Fracture, intertrochanteric, left femur S72.142A
[2025-04-06 12:37] VITALS: BP 108/74; PULSE 124; TEMP 98.2; O2SAT 98
--- NOTE | 2025-04-06 13:29 | Discharge Summary ---
Discharge Summary Date of Service April 06, 2025 Principal Dx & Hospital Course #1 = Principal Diagnosis (1) Closed hip fracture: (2) Urinary tract infection: (3) HTN (hypertension): (4) HLD (hyperlipidemia): (5) T2DM (type 2 diabetes mellitus): Plan 54 yo female PMHx HTN, HLD, T2DM not on insulin, and severe bilateral osteoarthritis of knees. She was admitted after fall and found to have L hip fracture. Left hip XR: nondisplaced intertrochanteric fracture of L femur w/ mild displacement of lesser trochanter fragment. This was surgical repaired via left intramedullary femoral nail placement. EBL 50 cc, no complications noted. She was discharged to [facility] for inpatient rehab. #L Hip Fracture - Ortho consulted, s/p left hip repair with Dr. Lane on 04/03 - weight bear as tolerated. Eliquis 2.5mg BID x 6 weeks for DVT prophylaxis - Pain control w/ scheduled Tylenol & Oxycodone 5 mg Q6H PRN for breakthrough pain - Benadryl prn q6h added in setting of pruritus secondary to narcotic use - Mild acute blood loss anemia secondary to surgical intervention with hgb decreased from 14.4 to 11.1 postop, stable - Vitamin D level low at 9.8 - started on supplementation, continued at [facility] - PT/OT - recommended rehab #UTI - Leukocytosis on admission 21.48, downtrended 12.75 - Urinalysis + for infection, UC consistent w/ E. Coli -Treated with ceftriaxone IV while hospitalized, transitioned to Augmentin twice daily x 1 additional day to complete course on discharge #T2DM - A1c 6.3% - Hold Mounjaro resume outpatient - Used SSI while admitted #HTN - Well controlled. Continue lisinopril #HLD - Continue pravastatin DVT prophylaxis: Eliquis 2.5mg BID (rec by ortho) Dispo: Discharged to [facility] 04/06 Notes For Next Care Provider Medication Changes From Visit Augmentin twice daily x 1 day to complete course for UTI Tylenol 1000 mg every 8 hours Oxycodone 5 mg every 6 hours as needed for breakthrough pain Eliquis 2.5 mg twice daily Vitamin D supplementation daily Admission HPI Per Admitting Provider 54 yo female PMHx HTN, HLD, T2DM not on insulin, severe bilateral osteoarthritis of knees admitted after fall and found to have L hip fracture. The patient was on her way to the pharmacy to spanish moss picker her pravastatin when her left knee gave out. She reports that this is not uncommon due to her severe osteoarthritis. She fell on to her left hip and immediately felt pain and was unable to stand back up. She denies any recent illness, fevers, chills, chest pain, shortness of breath, N/V, changes in bowel or bladder habits or urinary symptoms. ED Course: Pelvis/Hip XR: L-nondisplaced intertrochanteric femur fracture with mild displacement of lesser trochanteric fragment L Knee XR: negative for fracture Labs reveal leukocytosis, otherwise WNL Rec'd Zofran x1, 2mg morphine x2, started on NSS at 75cc/hr Discharge Exam General: No acute distress, nondiaphoretic, well-developed, well-nourished. Flat affect. Skin: Warm, dry. No rashes or peripheral edema noted. Cardiac: Regular rhythm, mildly tachycardic rate in 100s. No murmur appreciated. Pulm: Clear to auscultation bilaterally without wheezes, rales or rhonchi. Normal respiratory effort. 98% on room air. Abdominal: Soft, nontender, nondistended. Bowel sounds present. MSK: Left hip surgical dressing clean, dry, intact. Diffuse tenderness around left proximal thigh and hip. Normal motor and sensory function. Neuro: A&O x3. No focal neurological deficits. Discharge Plan Discharge Items Patient Disposition: Transfer Inpatient Rehab Fac Reason For Visit: L HIP FRACTURE, MECHANICAL GLF Discharge Diagnosis: Left femur fracture s/p IM femoral nail placement Condition on Discharge: Fair Activity: Per Instructions section Weightbearing: Full weightbearing Non-emergency contact: Primary Care Provider and Surgeon Call non-emergency contact if: you have any medication questions, your symptoms worsen and your pain is not controlled Follow-up/Referrals: Bernabe Lane DO [Physician] - (Follow-up as directed) Zoila Mendosa [Primary Care Provider] - (Follow-up in 1-2 weeks) Diet: Carb Consistent or DM2 Addtl Attending Provider Instructions: Leonard Moran were admitted to the hospital after a fall resulted in a left hip fracture. This was surgically repaired on 04/[address]. You were also found to have a UTI and were treated with IV antibiotics while in the hospital and will continue on oral antibiotics on discharge to finish the course. You are being discharged to [facility] for inpatient rehab. Upon discharge from the hospital: * Take Augmentin (oral antibiotic) twice daily x 1 day starting tomorrow (04/07). This is to complete your antibiotic course for the UTI. * Continue Eliquis 2.5 mg twice daily x 6 weeks to prevent blood clots after surgery. * Take Tylenol as your first-line pain medication. You can use oxycodone as needed for breakthrough pain. Do not drive or operate heavy machinery while taking oxycodone as it is a narcotic pain medication. * Follow-up with your PCP in 1-2 weeks. * Follow-up with orthopedics as directed. * Follow the additional instructions from your orthopedic team listed below. ORTHOPEDIC INSTRUCTIONS Hip Fracture Activity and Therapy Recommendations: 1. You were shown a series of exercises in the hospital. Do these exercises three times each day if you are able. 2. Get up and walk several times each day if you are capable. Make sure you have assistance is needed. For the first four weeks, try not to stand or walk for more than one hour at a time. If you do stand or walk for more than one hour, you will not hurt anything, but your leg will likely swell. 3. As you feel comfortable, you may change from the walker or crutches to a cane and then to independent walking if you are able. Please be safe. Medications: 1. Narcotic You will likely be sent from the hospital with the narcotic pain medication that worked best throughout your stay. 2. Eliquis -take Eliquis 2.5 mg twice a day for 6 weeks after surgery to prevent blood clots. 3. Other medications may be given for specific circumstances. If you have any questions, please call the office at [phone]. 4. Resume previous home medications unless otherwise instructed TEDs/Elastic Stockings: The white elastic stockings help limit swelling and prevent blood clots from forming in your legs. The more you wear them, the more they work. Wear them for six weeks. Dressing Care: Hernandez can be open to air as long as the incisions are not draining. If the incisions are draining or if the val are getting caught on your clothes then please cover the val with dry gauze. Change the dressings as necessary to keep the incision as dry as possible Showering: You may shower 5 days from the day of surgery as long as the incisions are not draining. Do not soak the incision. Let soapy water run over the val and pat them dry. Diet: You may resume your previous diet. Things To Watch For: 1. Drainage from the incision site that occurs more than one week after your surgery. 2. Increased redness at the incision site. 3. Fever above 102 degrees Fahrenheit. 4. Unusual chest pain or shortness of breath. 5. Call [facility] at with any of the above problems Follow-Up Visit: Follow-up with Dr. Lane's office 2-3 weeks after your day of surgery. We will remove your val and answer any questions. If you have any additional questions or concerns, Dr Lane is usually in the office at the same time and will be available Please call to set up an appointment for time that works for you Pending Studies at Discharge: No Stand-Alone Forms: My [facility] Skilled Items Patient informed of condition?: Yes DNR: No Discharge Level of Care: Acute rehab Communicable Disease: No Discharge Prognosis: Stable Lines: None Urinary Catheter: No Medications and DC Order Prescriptions: New acetaminophen [Tylenol Extra Strength] 500 mg Tablet 1,000 mg PO Q8H Qty: 60 0RF oxycodone 5 mg Tablet 5 mg PO Q4H PRN (Reason: breakthrough pain) Qty: 10 0RF Eliquis 2.5 mg Tablet 2.5 mg PO BID Qty: 60 0RF cholecalciferol (vitamin D3) 125 mcg (5,000 unit) Tablet 125 mcg PO QAM Qty: 30 0RF amoxicillin-pot clavulanate 875-125 mg tablet 1 tab PO BID Qty: 2 0RF Continued pravastatin 20 mg Tablet 20 mg PO DAILY lisinopril 5 mg Tablet 5 mg PO DAILY Mounjaro 5 mg/0.5 mL Pen Injector SUBCUT Discontinued oxycodone-acetaminophen [Endocet] 5-325 mg tablet 2 tab PO Q6H PRN (Reason: pain) Qty: 30 0RF Rx Instructions: does not take anymore Discharge Orders: Discharge Order (Routine); Ordered 04/06/25 Ordered By: Densie Jimenez/Other Patient Handouts: High Blood Sugar (Hyperglycemia), Hypoglycemia (Low Blood Sugar), Managing Type 2 Diabetes Admission Data Admit Date/Time: 04/03/25 00:40 Attending Provider: Paulo Renee Admit Provider: Tomas Batista Primary Care Provider: Zoila Mendosa Other Providers: Emmett Leach; Iris Leach; [facility]; [facility] Stay Data Consultations 04/02/25 23:14 Consult Orthopedic Surgery Routine 04/02/25 23:17 ED Decision to Admit Stat Procedures Performed Operation Date: 04/03/25 09:50 Actual Procedures p Left Intramedullary Femoral Nail Placement(Left) - Bernabe Lane DO Diagnostic Imagining Performed Hip/Pelvis X-Ray 04/02/25 22:02 Exam(s): XR HIP + PELVIS, 1 view EXAM: XR Left Hip With Pelvis, 3 Views CLINICAL HISTORY: Reason for exam: fall. TECHNIQUE: Three views of the left hip with pelvis. COMPARISON: No relevant prior studies available. FINDINGS: Bones/joints: Nondisplaced intertrochanteric fracture of the left femur, with mild displacement of the lesser trochanter fragment. No other fracture. No dislocation. Soft tissues: Unremarkable. IMPRESSION: 1. Nondisplaced intertrochanteric fracture of the LEFT femur, with mild displacement of the lesser trochanter fragment. Electronically signed by: Johanne Valerio M.D. 04/02/25 23:07 PM Knee X-Ray 04/02/25 22:02 Exam(s): XR LEFT KNEE, 3 views EXAM: XR Left Knee, 3 Views CLINICAL HISTORY: Reason for exam: fall. TECHNIQUE: Three views of the left knee. Significant limited evaluation due to patient positioning, the knee is bent. COMPARISON: Left knee x-ray 05/15/2024. FINDINGS: Bones/joints: Limited evaluation of the medial and lateral joint space due to patient positioning. Mild patellofemoral joint osteoarthritis. No definite acute fracture. No dislocation. Soft tissues: Unremarkable. No joint effusion. IMPRESSION: 1. No joint effusion or definite acute bony abnormality. 2. Limited evaluation due to patient positioning. Electronically signed by: Johanne Valerio M.D. 04/02/25 23:14 PM Chest X-Ray 04/02/25 23:16 EXAM: XR chest 1V portable CLINICAL HISTORY: Pre-operative. TECHNIQUE: An X-ray image of the chest is obtained in AP projection. COMPARISON: ompared to the previous study dated 01/03/2019. FINDINGS: Pulmonary Parenchyma: Lungs are clear bilaterally. No evidence of consolidation, collapse, or focal opacities. No pulmonary nodules are identified. No evidence of pleural effusion or pleural thickening. Heart and Mediastinum: Mild cardiomegaly. No mediastinal widening or masses. No hilar or mediastinal lymphadenopathy. Bony Thorax: Bony thorax appears intact without fractures or deformities. An ECG lead was seen Soft Tissues: Soft tissues overlying the chest wall are unremarkable. IMPRESSION: 1. No acute cardiopulmonary abnormalities are identified. 2. Mild cardiomegaly. stable. Electronically signed by Jermain Betancourt 04-03-2025 01:54 AM Hip X-Ray 04/03/25 00:00 INTRAOPERATIVE RADIOGRAPHS CLINICAL HISTORY: Open reduction and internal fixation of the left proximal femur. Fluoro time: 62 seconds Ka,r: 20.93 mGy FINDINGS: 3 spot fluoroscopic views of the left hip are correlated with x-rays dated 04/02/2025. Intertrochanteric and intramedullary nails have been placed transfixing an intertrochanteric fracture of the left proximal femur. Near anatomic alignment is maintained. The orthopedic hardware appears intact. There is persistent medial displacement of the lesser trochanter. IMPRESSION: Intraoperative images from open reduction and internal fixation of a left proximal femoral fracture. Electronically signed by: Fredo Rizzo M.D. 04/04/2025 7:30 AM Hip X-Ray 04/03/25 19:59 Exam(s): XR LEFT HIP EXAM: XR Left Hip With Pelvis When Performed, 2 or 3 Views CLINICAL HISTORY: Post-Operative implant position. TECHNIQUE: Two or three views of the left hip with pelvis when performed. COMPARISON: Pelvic radiographs 04/02/2025 FINDINGS: Bones/joints: Interval internal fixation of the left femur traversing a nondisplaced intertrochanteric femoral fracture. The lesser trochanter is avulsed and mildly displaced. No dislocation. Soft tissues: There are surgical changes noted. IMPRESSION: Interval internal fixation of the left femur traversing a nondisplaced intertrochanteric femoral fracture. The lesser trochanter is avulsed and mildly displaced. Electronically signed by: Soledad Roche MD 04/03/25 22:11 PM Pending Results Patient Have Any Pending Studies at Discharge: No Discharge Instructions Given to Patient (Per Discharging Provider) Leonard Moran were admitted to the hospital after a fall resulted in a left hip fracture. This was surgically repaired on 04/[address]. You were also found to have a UTI and were treated with IV antibiotics while in the hospital and will continue on oral antibiotics on discharge to finish the course. You are being discharged to [facility] for inpatient rehab. Upon discharge from the hospital: * Take Augmentin (oral antibiotic) twice daily x 1 day starting tomorrow (04/07). This is to complete your antibiotic course for the UTI. * Continue Eliquis 2.5 mg twice daily x 6 weeks to prevent blood clots after surgery. * Take Tylenol as your first-line pain medication. You can use oxycodone as needed for breakthrough pain. Do not drive or operate heavy machinery while taking oxycodone as it is a narcotic pain medication. * Follow-up with your PCP in 1-2 weeks. * Follow-up with orthopedics as directed. * Follow the additional instructions from your orthopedic team listed below. ORTHOPEDIC INSTRUCTIONS Hip Fracture Activity and Therapy Recommendations: 1. You were shown a series of exercises in the hospital. Do these exercises three times each day if you are able. 2. Get up and walk several times each day if you are capable. Make sure you have assistance is needed. For the first four weeks, try not to stand or walk for more than one hour at a time. If you do stand or walk for more than one hour, you will not hurt anything, but your leg will likely swell. 3. As you feel comfortable, you may change from the walker or crutches to a cane and then to independent walking if you are able. Please be safe. Medications: 1. Narcotic You will likely be sent from the hospital with the narcotic pain medication that worked best throughout your stay. 2. Eliquis -take Eliquis 2.5 mg twice a day for 6 weeks after surgery to prevent blood clots. 3. Other medications may be given for specific circumstances. If you have any questions, please call the office at [phone]. 4. Resume previous home medications unless otherwise instructed TEDs/Elastic Stockings: The white elastic stockings help limit swelling and prevent blood clots from forming in your legs. The more you wear them, the more they work. Wear them for six weeks. Dressing Care: Hernandez can be open to air as long as the incisions are not draining. If the incisions are draining or if the val are getting caught on your clothes then please cover the val with dry gauze. Change the dressings as necessary to keep the incision as dry as possible Showering: You may shower 5 days from the day of surgery as long as the incisions are not draining. Do not soak the incision. Let soapy water run over the val and pat them dry. Diet: You may resume your previous diet. Things To Watch For: 1. Drainage from the incision site that occurs more than one week after your surgery. 2. Increased redness at the incision site. 3. Fever above 102 degrees Fahrenheit. 4. Unusual chest pain or shortness of breath. 5. Call [facility] at with any of the above problems Follow-Up Visit: Follow-up with Dr. Lane's office 2-3 weeks after your day of surgery. We will remove your val and answer any questions. If you have any additional questions or concerns, Dr Lane is usually in the office at the same time and will be available Please call to set up an appointment for time that works for you Total Time Total Time Spent Total Time Spent (In Minutes): Greater than 30 minutes spent completing this discharge process including direct patient care, medication reconciliation, documentation, review of labs and images, and coordination of care. Coding Level of Care Code 40336 INP/OBS DISCH >30 MIN Diagnoses Closed hip fracture S72.002A Encounter type: initial encounter Laterality: left Urinary tract infection N39.0 HTN (hypertension) I10 HLD (hyperlipidemia) E78.5 T2DM (type 2 diabetes mellitus) E11.9
== END 2025-04-06 15:17 | DRG 481 ==
LOC: ED 21:45 → 3W 04-03 00:40 → SUATTDRO 04-03 00:40 → 3W 04-03 01:17